=== PATIENT | male | born 2000 | race Caucasian/White ===

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

== ENCOUNTER 2019-03-06 13:53 | Emergency (ER) | payer OTHER ==
[~2019-03-06] VITALS: Ht 182.9 cm; Wt 136.1 kg
== END 2019-03-06 14:27 | disposition home or self-care (01) ==
LOC: ER 13:53
DX: F25.9 Schizoaffective disorder, unspecified (principal); F84.0 Autistic disorder; F90.9 Attention-deficit hyperactivity disorder, unspecified type; I10 Essential (primary) hypertension; Z91.14 Patient's other noncompliance with medication regimen; Z79.899 Other long term (current) drug therapy
CPT/HCPCS: 99284

== ENCOUNTER → 2019-03-08 | Outpatient (CLI) | payer OTHER ==
[2019-03-08 14:12] LABS: U Amphetamine Screen Not Detected; U Barbituate Screen Not Detected; U Benzodiazapine Screen Not Detected; U Buprenorphine Screen Not Detected; U Cannabinoids Screen DETECTED; U Cocaine Screen Not Detected; U Methadone Screen Not Detected; U Methamphetamine Screen Not Detected; U Opiates Screen Not Detected; U Oxycodone Screen Not Detected; U Phencyclidine Screen Not Detected; U Propoxyphene Screen Not Detected
== END ==
LOC: LAB 11:30 → LAB SHORT 11:30
PROVIDERS: Registered Nurse
DX: Z51.81 Encounter for therapeutic drug level monitoring (principal); Z79.899 Other long term (current) drug therapy

== ENCOUNTER 2019-09-23 16:59 | Observation (INO) | payer OTHER ==
[~2019-09-23] VITALS: Ht 182.9 cm; Wt 145.2 kg
[2019-09-23 20:07] LABS: Source, Urine Voided
[2019-09-23 20:14] LABS: BASOPHILS ABSOLUTE AUTO 0.08 K/mm3 (0.00-0.23); BASOPHILS PERCENT AUTO 1 % (0-2); EOSINOPHILS PERCENT AUTO 1 % (0-6); Hematocrit 43.3 % (37.0-53.0); Hemoglobin 14.3 g/dL (13.5-17.5); IMMATURE GRAN ABSOLUTE AUTO 0.06 K/mm3 (0.00-0.10); IMMATURE GRAN PERCENT AUTO 0 % (0-1); LYMPHOCYTES ABSOLUTE AUTO 1.74 K/mm3 (0.84-5.20); LYMPHOCYTES PERCENT AUTO 11 % (21-46); MONOCYTES ABSOLUTE AUTO 0.87 K/mm3 (0.16-1.47); MONOCYTES PERCENT AUTO 6 % (4-13); Mean Corpuscular HGB 28.5 pg (26.0-34.0); Mean Corpuscular Volume 86 fL (80-100); Mean Platelet Volume 9.1 fL (9.1-12.4); NEUTROPHILS ABSOLUTE AUTO 12.75 K/mm3 (1.96-9.15); NEUTROPHILS PERCENT AUTO 82 % (41-73); Platelet Count 366 K/mm3 (150-400); RDW Coefficient Variation 12.5 % (11.7-14.2); RDW Standard Deviation 39.8 fL (35.1-46.3); Red Blood Cell Count 5.01 M/mm3 (4.30-5.90)
[2019-09-23 20:14] LABS: Bilirubin, Urine Neg (Neg); Blood, Urine Neg (Neg); Glucose Qualitative, Urine Neg (Neg); Ketones, Urine Neg (Neg); Leukocyte Esterase, Urine Neg (Neg); Nitrite, Urine Neg (Neg); Protein, Urine 2+ (Neg); Urobilinogen, Urine NORM (Normal)
[2019-09-23 20:20] LABS: Appearance, Urine Clear (Clear); Color, Urine Yellow (P-Yellow)
[2019-09-23 20:21] LABS: Bacteria Mod /hpf; Mucus Light (0-Heavy); Red Blood Cells, Urine 0-2 /hpf (0-2); Squamous Epithelial Cells Not Seen /hpf (Few); White Blood Cells, Urine 0-2 /hpf (0-5)
[2019-09-23 20:33] LABS: Salicylate <1.7 mg/dL (2.8-20.0)
[2019-09-23 20:34] LABS: Alanine Aminotransfer (ALT/SGP 23 U/L (12-78); Albumin, Blood 3.8 g/dL (3.4-5.0); Alk Phos 93 U/L (50-136); Anion Gap 5 mmol/L (6-16); Aspartate Aminotrans (AST/SGOT 20 U/L (12-37); Bilirubin, Total 0.3 mg/dL (0.1-1.0); Blood Urea Nitrogen 20 mg/dL (8-24); Bun/Creatinine Ratio 22.6 (12.0-20.0); CO2, Blood 29 mmol/L (21-32); Chloride, Blood 106 mmol/L (98-108); Creatinine, Blood 0.88 mg/dL (0.60-1.20); Ethanol (Alcohol), Blood, Med <3 mg/dL; Globulin, Blood 3.7 g/dL (2.2-4.0); Glomerular Filtration Rate >60 (60-); Glucose, Blood 111 mg/dL (70-99); Potassium, Blood 4.3 mmol/L (3.5-5.5); Sodium, Blood 140 mmol/L (136-145); Total Protein, Blood 7.5 g/dL (6.4-8.2)
[2019-09-23 20:35] LABS: Acetaminophen, Random <2.0 ug/mL (10.0-30.0)
[2019-09-23 20:40] LABS: U Amphetamine Screen Not Detected; U Barbituate Screen Not Detected; U Benzodiazapine Screen Not Detected; U Buprenorphine Screen Not Detected; U Cannabinoids Screen DETECTED; U Cocaine Screen Not Detected; U Methadone Screen Not Detected; U Methamphetamine Screen Not Detected; U Opiates Screen Not Detected; U Oxycodone Screen Not Detected; U Phencyclidine Screen Not Detected; U Propoxyphene Screen Not Detected
== END 2019-09-26 11:24 | disposition home or self-care (01) ==
LOC: ER 16:59 → EOR 17:00
PROVIDERS: ADMIT Emergency Medicine
DX: F20.0 Paranoid schizophrenia (principal); F90.9 Attention-deficit hyperactivity disorder, unspecified type; F84.0 Autistic disorder; I10 Essential (primary) hypertension; E66.9 Obesity, unspecified; Z91.14 Patient's other noncompliance with medication regimen; Z88.0 Allergy status to penicillin
CPT/HCPCS: 80053; 81001; 85025; 87086; 96372; 99285-25; G0378; G0480; J1200; J1630; J2060; Q3014

== ENCOUNTER 2019-10-14 17:20 | Emergency (ER) | payer OTHER | END 2019-10-14 17:40 | disposition left against medical advice (07) | LOC: ER 17:20 | DX: Z53.21 Procedure and treatment not carried out due to patient leaving prior to being seen by health care provider (principal) ==

== ENCOUNTER 2019-11-15 10:55 | Emergency (ER) | payer OTHER ==
[~2019-11-15] VITALS: Ht 180.3 cm; Wt 147.4 kg
[2019-12-24] MEDS ORDERED: PALI3TAB (09:00)
== END 2019-11-15 13:14 | disposition home or self-care (01) ==
LOC: ER 10:55
DX: F22 Delusional disorders (principal); F91.9 Conduct disorder, unspecified; Z88.0 Allergy status to penicillin
CPT/HCPCS: 99283

== ENCOUNTER 2019-11-20 00:10 | Emergency (ER) | payer OTHER ==
[~2019-11-20] VITALS: Ht 182.9 cm; Wt 113.4 kg
[2019-11-20] MEDS ORDERED: ARIP10 PO (00:34)
[2019-12-24] MEDS ORDERED: PALI3TAB (09:00)
== END 2019-11-20 04:03 | disposition home or self-care (01) ==
LOC: ER 00:10
DX: Z00.8 Encounter for other general examination (principal); Z88.0 Allergy status to penicillin; Z79.899 Other long term (current) drug therapy; I10 Essential (primary) hypertension; F90.9 Attention-deficit hyperactivity disorder, unspecified type; F03.90 Unspecified dementia, unspecified severity, without behavioral disturbance, psychotic disturbance, mood disturbance, and anxiety
CPT/HCPCS: 99285

== ENCOUNTER 2019-12-26 05:40 | Observation (INO) | payer OTHER ==
[~2019-12-26] VITALS: Ht 182.9 cm; Wt 113.4 kg
[~2019-12-26 05:40] MED LIST changes: +ARIP10 PO
[2019-12-26] MEDS ORDERED: Ativan1 MG PO (06:01)
[2019-12-26] MEDS ORDERED: INVEGA SUS39 MG/0.21 (06:02)
[2019-12-26] MEDS ORDERED: PALIPERIDONE ER9 MG PO (06:02)
[2019-12-26 06:39] LABS: Source, Urine Clean Catch
[2019-12-26 06:46] LABS: Appearance, Urine Hazy (Clear); Bilirubin, Urine Neg (Neg); Blood, Urine Neg (Neg); Color, Urine Yellow (P-Yellow); Glucose Qualitative, Urine Neg (Neg); Ketones, Urine 3+ (Neg); Leukocyte Esterase, Urine 1+ (Neg); Nitrite, Urine Neg (Neg); Protein, Urine 1+ (Neg); Specific Gravity, Urine 1.015 (1.003-1.022); Urobilinogen, Urine 1+ (Normal)
[2019-12-26 06:49] LABS: BASOPHILS ABSOLUTE AUTO 0.05 K/mm3 (0.00-0.23); BASOPHILS PERCENT AUTO 0 % (0-2); EOSINOPHILS PERCENT AUTO 1 % (0-6); Hematocrit 45.6 % (37.0-53.0); Hemoglobin 15.3 g/dL (13.5-17.5); IMMATURE GRAN ABSOLUTE AUTO 0.07 K/mm3 (0.00-0.10); IMMATURE GRAN PERCENT AUTO 1 % (0-1); LYMPHOCYTES ABSOLUTE AUTO 2.05 K/mm3 (0.84-5.20); LYMPHOCYTES PERCENT AUTO 14 % (21-46); MONOCYTES ABSOLUTE AUTO 1.07 K/mm3 (0.16-1.47); MONOCYTES PERCENT AUTO 7 % (4-13); Mean Corpuscular HGB 29.4 pg (26.0-34.0); Mean Corpuscular HGB Conc 33.6 g/dL (31.5-36.5); Mean Corpuscular Volume 88 fL (80-100); Mean Platelet Volume 9.3 fL (9.1-12.4); NEUTROPHILS ABSOLUTE AUTO 11.32 K/mm3 (1.96-9.15); NEUTROPHILS PERCENT AUTO 77 % (41-73); Platelet Count 449 K/mm3 (150-400); RDW Coefficient Variation 13.2 % (11.7-14.2); RDW Standard Deviation 42.2 fL (35.1-46.3); Red Blood Cell Count 5.21 M/mm3 (4.30-5.90); White Blood Cell Count 14.66 K/mm3 (4.00-11.30)
[2019-12-26 07:00] LABS: Amorphous Heavy (0-Heavy); Bacteria Few /hpf; Red Blood Cells, Urine 0-2 /hpf (0-2); Squamous Epithelial Cells Few /hpf (Few)
[2019-12-26 07:03] LABS: U Amphetamine Screen Not Detected; U Barbituate Screen Not Detected; U Benzodiazapine Screen Not Detected; U Buprenorphine Screen Not Detected; U Cannabinoids Screen DETECTED; U Cocaine Screen Not Detected; U Methadone Screen Not Detected; U Methamphetamine Screen Not Detected; U Opiates Screen Not Detected; U Oxycodone Screen Not Detected; U Phencyclidine Screen Not Detected; U Propoxyphene Screen Not Detected
[2019-12-26 07:04] LABS: Alanine Aminotransfer (ALT/SGP 24 U/L (12-78); Alk Phos 85 U/L (50-136); Anion Gap 7 mmol/L (6-16); Aspartate Aminotrans (AST/SGOT 24 U/L (12-37); Bilirubin, Total 0.4 mg/dL (0.1-1.0); Blood Urea Nitrogen 5 mg/dL (8-24); Bun/Creatinine Ratio 5.6 (12.0-20.0); CO2, Blood 23 mmol/L (21-32); Calcium, Blood 9.5 mg/dL (8.5-10.1); Chloride, Blood 108 mmol/L (98-108); Creatinine, Blood 0.89 mg/dL (0.60-1.20); Ethanol (Alcohol), Blood, Med <3 mg/dL; Globulin, Blood 4.1 g/dL (2.2-4.0); Glomerular Filtration Rate >60 (60-); Glucose, Blood 106 mg/dL (70-99); Salicylate <1.7 mg/dL (2.8-20.0); Sodium, Blood 138 mmol/L (136-145); Total Protein, Blood 8.1 g/dL (6.4-8.2)
[2019-12-26 07:07] LABS: Acetaminophen, Random <2.0 ug/mL (10.0-30.0)
== END 2019-12-27 10:01 | disposition home or self-care (01) ==
LOC: ER 05:40 → EOR 05:41
PROVIDERS: ADMIT Emergency Medicine
DX: F29 Unspecified psychosis not due to a substance or known physiological condition (principal); I10 Essential (primary) hypertension; Z88.0 Allergy status to penicillin; Z79.899 Other long term (current) drug therapy
CPT/HCPCS: 36415; 80053; 81001; 85025; 87086; 96372; 99285-25; G0378; G0480; J1630; J2060

== ENCOUNTER 2020-02-24 11:01 | Emergency (ER) | payer OTHER ==
[~2020-02-24] VITALS: Ht 180.3 cm; Wt 122.5 kg
[~2020-02-24 11:01] MED LIST changes: +Ativan1 MG PO; +INVEGA SUS39 MG/0.21; +PALIPERIDONE ER9 MG PO
[2020-02-24 11:37] LABS: Source, Urine Clean Catch
[2020-02-24 11:39] LABS: Appearance, Urine Clear (Clear); Bilirubin, Urine Neg (Neg); Blood, Urine Neg (Neg); Color, Urine Yellow (P-Yellow); Glucose Qualitative, Urine Neg (Neg); Ketones, Urine Neg (Neg); Leukocyte Esterase, Urine Neg (Neg); Nitrite, Urine Neg (Neg); Protein, Urine Neg (Neg); Specific Gravity, Urine 1.015 (1.003-1.022); Urobilinogen, Urine NORM (Normal); pH, Urine 6.5 (5.0-8.0)
== END 2020-02-24 12:23 | disposition home or self-care (01) ==
LOC: ER 11:01
PROVIDERS: Emergency Medicine
DX: R82.998 Other abnormal findings in urine (principal); I10 Essential (primary) hypertension; F20.81 Schizophreniform disorder; Z79.899 Other long term (current) drug therapy
CPT/HCPCS: 81003; 99284

== ENCOUNTER 2020-03-19 15:59 | Emergency (ER) | payer OTHER ==
[~2020-03-19] VITALS: Ht 177.8 cm; Wt 122.5 kg
[2020-03-19 16:51] LABS: BASOPHILS ABSOLUTE AUTO 0.06 K/mm3 (0.00-0.23); BASOPHILS PERCENT AUTO 0 % (0-2); EOSINOPHILS ABSOLUTE AUTO 0.01 K/mm3 (0.00-0.68); EOSINOPHILS PERCENT AUTO 0 % (0-6); Hematocrit 48.3 % (37.0-53.0); Hemoglobin 15.5 g/dL (13.5-17.5); IMMATURE GRAN ABSOLUTE AUTO 0.08 K/mm3 (0.00-0.10); IMMATURE GRAN PERCENT AUTO 0 % (0-1); LYMPHOCYTES ABSOLUTE AUTO 1.22 K/mm3 (0.84-5.20); LYMPHOCYTES PERCENT AUTO 6 % (21-46); MONOCYTES PERCENT AUTO 5 % (4-13); Mean Corpuscular HGB 28.8 pg (26.0-34.0); Mean Corpuscular HGB Conc 32.1 g/dL (31.5-36.5); Mean Corpuscular Volume 90 fL (80-100); Mean Platelet Volume 8.7 fL (9.1-12.4); NEUTROPHILS ABSOLUTE AUTO 18.79 K/mm3 (1.96-9.15); NEUTROPHILS PERCENT AUTO 88 % (41-73); Platelet Count 445 K/mm3 (150-400); RDW Coefficient Variation 13.3 % (11.7-14.2); RDW Standard Deviation 44.3 fL (35.1-46.3); Red Blood Cell Count 5.38 M/mm3 (4.30-5.90); White Blood Cell Count 21.26 K/mm3 (4.00-11.30)
[2020-03-19 17:20] LABS: Salicylate 1.9 mg/dL (2.8-20.0)
[2020-03-19 17:22] LABS: Alanine Aminotransfer (ALT/SGP 22 U/L (12-78); Albumin, Blood 4.4 g/dL (3.4-5.0); Albumin/Globulin Ratio 1.1 (0.8-1.8); Alk Phos 93 U/L (50-136); Anion Gap 9 mmol/L (6-16); Aspartate Aminotrans (AST/SGOT 17 U/L (12-37); Blood Urea Nitrogen 13 mg/dL (8-24); Bun/Creatinine Ratio 13.7 (12.0-20.0); CO2, Blood 17 mmol/L (21-32); Calcium, Blood 8.8 mg/dL (8.5-10.1); Chloride, Blood 114 mmol/L (98-108); Creatinine, Blood 0.95 mg/dL (0.60-1.20); Glomerular Filtration Rate >60 (60-); Glucose, Blood 79 mg/dL (70-99); Potassium, Blood 4.3 mmol/L (3.5-5.5); Sodium, Blood 140 mmol/L (136-145); Total Protein, Blood 8.4 g/dL (6.4-8.2)
[2020-03-19 17:23] LABS: Acetaminophen, Random <2.0 ug/mL (10.0-30.0)
== END 2020-03-19 20:13 | disposition home or self-care (01) ==
LOC: ER 15:59
PROVIDERS: Physician Assistant
DX: T48.3X2A Poisoning by antitussives, intentional self-harm, initial encounter (principal); R53.83 Other fatigue; I10 Essential (primary) hypertension; F90.9 Attention-deficit hyperactivity disorder, unspecified type; F20.81 Schizophreniform disorder; Z88.0 Allergy status to penicillin; Z79.899 Other long term (current) drug therapy
CPT/HCPCS: 36415; 71045; 80053; 83605; 85025; 93005; 93010; 96360; 99284-25; G0480; J7030

== ENCOUNTER 2020-03-20 01:00 | Emergency (ER) | payer OTHER ==
[~2020-03-20] VITALS: Ht 177.8 cm; Wt 90.7 kg
== END 2020-03-20 02:42 | disposition home or self-care (01) ==
LOC: ER 01:00
DX: M79.672 Pain in left foot (principal); R20.0 Anesthesia of skin; F90.9 Attention-deficit hyperactivity disorder, unspecified type; F84.0 Autistic disorder; F20.81 Schizophreniform disorder; Z88.0 Allergy status to penicillin; Z79.899 Other long term (current) drug therapy; Z87.442 Personal history of urinary calculi
CPT/HCPCS: 73630; 99283-25; A9270

== ENCOUNTER 2020-04-13 07:03 | Observation (INO) | payer OTHER ==
[~2020-04-13] VITALS: Ht 177.8 cm; Wt 104.3 kg
[2020-04-13 07:56] LABS: BASOPHILS ABSOLUTE AUTO 0.05 K/mm3 (0.00-0.23); BASOPHILS PERCENT AUTO 0 % (0-2); EOSINOPHILS ABSOLUTE AUTO 0.02 K/mm3 (0.00-0.68); EOSINOPHILS PERCENT AUTO 0 % (0-6); Hematocrit 46.2 % (37.0-53.0); Hemoglobin 15.4 g/dL (13.5-17.5); IMMATURE GRAN ABSOLUTE AUTO 0.03 K/mm3 (0.00-0.10); IMMATURE GRAN PERCENT AUTO 0 % (0-1); LYMPHOCYTES ABSOLUTE AUTO 1.73 K/mm3 (0.84-5.20); LYMPHOCYTES PERCENT AUTO 14 % (21-46); MONOCYTES PERCENT AUTO 7 % (4-13); Mean Corpuscular HGB 29.2 pg (26.0-34.0); Mean Corpuscular HGB Conc 33.3 g/dL (31.5-36.5); Mean Corpuscular Volume 88 fL (80-100); NEUTROPHILS ABSOLUTE AUTO 9.46 K/mm3 (1.96-9.15); NEUTROPHILS PERCENT AUTO 78 % (41-73); Platelet Count 440 K/mm3 (150-400); RDW Coefficient Variation 13.2 % (11.7-14.2); RDW Standard Deviation 42.3 fL (35.1-46.3); Red Blood Cell Count 5.27 M/mm3 (4.30-5.90); White Blood Cell Count 12.09 K/mm3 (4.00-11.30)
[2020-04-13 08:10] LABS: Alanine Aminotransfer (ALT/SGP 24 U/L (12-78); Albumin, Blood 4.5 g/dL (3.4-5.0); Albumin/Globulin Ratio 1.1 (0.8-1.8); Alk Phos 92 U/L (50-136); Anion Gap 6 mmol/L (6-16); Aspartate Aminotrans (AST/SGOT 15 U/L (12-37); Bilirubin, Total 0.9 mg/dL (0.1-1.0); Blood Urea Nitrogen 18 mg/dL (8-24); Bun/Creatinine Ratio 21.6 (12.0-20.0); CO2, Blood 24 mmol/L (21-32); Calcium, Blood 9.6 mg/dL (8.5-10.1); Chloride, Blood 108 mmol/L (98-108); Creatinine, Blood 0.84 mg/dL (0.60-1.20); Ethanol (Alcohol), Blood, Med <3 mg/dL; Globulin, Blood 4.2 g/dL (2.2-4.0); Glomerular Filtration Rate >60 (60-); Glucose, Blood 98 mg/dL (70-99); Potassium, Blood 4.2 mmol/L (3.5-5.5); Salicylate <1.7 mg/dL (2.8-20.0); Sodium, Blood 138 mmol/L (136-145); Total Protein, Blood 8.7 g/dL (6.4-8.2)
[2020-04-13 08:11] LABS: Acetaminophen, Random <2.0 ug/mL (10.0-30.0)
[2020-04-13 08:30] LABS: Influenza A, PCR Negative (NEGATIVE); Influenza B, PCR Negative (NEGATIVE); Resp Syncytial Virus, PCR Negative (NEGATIVE); SARS-Cov-2 (COVID-19) PCR, MMC Negative (NEGATIVE)
[2020-04-13 08:42] LABS: Source, Urine Voided
[2020-04-13 08:54] LABS: Bilirubin, Urine Neg (Neg); Blood, Urine Neg (Neg); Glucose Qualitative, Urine Neg (Neg); Ketones, Urine 4+ (Neg); Leukocyte Esterase, Urine Neg (Neg); Nitrite, Urine Neg (Neg); Protein, Urine 2+ (Neg); Specific Gravity, Urine 1.025 (1.003-1.022); Urobilinogen, Urine 2+ (Normal)
[2020-04-13 09:00] LABS: Appearance, Urine Clear (Clear); Color, Urine Amber (P-Yellow)
[2020-04-13 09:01] LABS: Red Blood Cells, Urine 0-2 /hpf (0-2); White Blood Cells, Urine 0-2 /hpf (0-5)
[2020-04-13 09:02] LABS: Bacteria Mod /hpf; Mucus Mod (0-Heavy); Squamous Epithelial Cells Rare /hpf (Few)
[2020-04-13 09:07] LABS: U Amphetamine Screen Not Detected; U Barbituate Screen Not Detected; U Benzodiazapine Screen Not Detected; U Buprenorphine Screen Not Detected; U Cannabinoids Screen DETECTED; U Cocaine Screen Not Detected; U Methadone Screen Not Detected; U Methamphetamine Screen Not Detected; U Opiates Screen Not Detected; U Oxycodone Screen Not Detected; U Phencyclidine Screen Not Detected; U Propoxyphene Screen Not Detected
== END 2020-04-16 11:12 | disposition home or self-care (01) ==
LOC: ER 07:03 → EOR 07:04
PROVIDERS: ADMIT Emergency Medicine
DX: F29 Unspecified psychosis not due to a substance or known physiological condition (principal); F90.9 Attention-deficit hyperactivity disorder, unspecified type; F84.0 Autistic disorder; Z88.0 Allergy status to penicillin; I10 Essential (primary) hypertension; Z20.828 Contact with and (suspected) exposure to other viral communicable diseases; Z79.899 Other long term (current) drug therapy
CPT/HCPCS: 0241U; 36415; 80053; 81001; 85025; 87086; 96372; 99285-25; G0378; G0480; Q3014

== ENCOUNTER 2020-05-13 22:40 | Observation (INO) | payer OTHER ==
[~2020-05-13] VITALS: Ht 177.8 cm; Wt 104.3 kg
[2020-05-13 23:22] LABS: BASOPHILS ABSOLUTE AUTO 0.05 K/mm3 (0.00-0.23); BASOPHILS PERCENT AUTO 0 % (0-2); EOSINOPHILS ABSOLUTE AUTO 0.01 K/mm3 (0.00-0.68); EOSINOPHILS PERCENT AUTO 0 % (0-6); Hematocrit 48.1 % (37.0-53.0); Hemoglobin 15.7 g/dL (13.5-17.5); IMMATURE GRAN PERCENT AUTO 0 % (0-1); LYMPHOCYTES PERCENT AUTO 10 % (21-46); MONOCYTES ABSOLUTE AUTO 1.45 K/mm3 (0.16-1.47); MONOCYTES PERCENT AUTO 6 % (4-13); Mean Corpuscular HGB Conc 32.6 g/dL (31.5-36.5); Mean Corpuscular Volume 89 fL (80-100); Mean Platelet Volume 9.5 fL (9.1-12.4); NEUTROPHILS ABSOLUTE AUTO 19.37 K/mm3 (1.96-9.15); NEUTROPHILS PERCENT AUTO 84 % (41-73); Platelet Count 414 K/mm3 (150-400); RDW Coefficient Variation 12.6 % (11.7-14.2); RDW Standard Deviation 41.3 fL (35.1-46.3); Red Blood Cell Count 5.42 M/mm3 (4.30-5.90); White Blood Cell Count 23.18 K/mm3 (4.00-11.30)
[2020-05-13 23:40] LABS: Acetaminophen, Random 9.8 ug/mL (10.0-30.0); Alanine Aminotransfer (ALT/SGP 29 U/L (12-78); Albumin/Globulin Ratio 0.9 (0.8-1.8); Alk Phos 86 U/L (50-136); Anion Gap 13 mmol/L (6-16); Aspartate Aminotrans (AST/SGOT 36 U/L (12-37); Bilirubin, Total 0.5 mg/dL (0.1-1.0); Blood Urea Nitrogen 22 mg/dL (8-24); CO2, Blood 17 mmol/L (21-32); Calcium, Blood 9.1 mg/dL (8.5-10.1); Chloride, Blood 105 mmol/L (98-108); Creatinine, Blood 0.88 mg/dL (0.60-1.20); Ethanol (Alcohol), Blood, Med <3 mg/dL; Globulin, Blood 4.4 g/dL (2.2-4.0); Glomerular Filtration Rate >60 (60-); Glucose, Blood 123 mg/dL (70-99); Potassium, Blood 4.1 mmol/L (3.5-5.5); Sodium, Blood 135 mmol/L (136-145); Total Protein, Blood 8.4 g/dL (6.4-8.2)
[2020-05-14 00:54] LABS: Influenza A, PCR Negative (NEGATIVE); Influenza B, PCR Negative (NEGATIVE); Resp Syncytial Virus, PCR Negative (NEGATIVE); SARS-Cov-2 (COVID-19) PCR, MMC Negative (NEGATIVE)
[2020-05-14 01:08] LABS: U Amphetamine Screen Not Detected; U Barbituate Screen Not Detected; U Benzodiazapine Screen DETECTED; U Buprenorphine Screen Not Detected; U Cannabinoids Screen DETECTED; U Cocaine Screen Not Detected; U Methadone Screen Not Detected; U Methamphetamine Screen Not Detected; U Opiates Screen Not Detected; U Oxycodone Screen Not Detected; U Phencyclidine Screen Not Detected; U Propoxyphene Screen Not Detected
[2020-05-14 05:34] LABS: Source, Urine Clean Catch
[2020-05-14 05:53] LABS: Appearance, Urine Clear (Clear); Bilirubin, Urine Neg (Neg); Blood, Urine Neg (Neg); Color, Urine Yellow (P-Yellow); Glucose Qualitative, Urine Neg (Neg); Ketones, Urine 2+ (Neg); Leukocyte Esterase, Urine Neg (Neg); Nitrite, Urine Neg (Neg); Protein, Urine Neg (Neg); Urobilinogen, Urine NORM (Normal)
== END 2020-05-15 13:57 ==
LOC: ER 22:40 → EOR 22:41
PROVIDERS: Emergency Medicine; ADMIT Student in an Organized Health Care Education/Training Program
DX: F20.9 Schizophrenia, unspecified (principal); R45.851 Suicidal ideations; F84.0 Autistic disorder; F90.1 Attention-deficit hyperactivity disorder, predominantly hyperactive type; E66.9 Obesity, unspecified; I10 Essential (primary) hypertension; F12.10 Cannabis abuse, uncomplicated; F13.10 Sedative, hypnotic or anxiolytic abuse, uncomplicated; G89.29 Other chronic pain; M25.569 Pain in unspecified knee; Z91.14 Patient's other noncompliance with medication regimen; Z20.822 Contact with and (suspected) exposure to COVID-19; Z88.0 Allergy status to penicillin
CPT/HCPCS: 0241U; 36415; 80053; 81003; 85025; 93005; 93010; 96372; 96372-59; 99285-25; A9270; G0378; G0480; J1200; J1630; J2060; J2250; J7030

== ENCOUNTER 2020-07-04 05:46 | Emergency (ER) | payer OTHER ==
[~2020-07-04] VITALS: Ht 188 cm; Wt 124.7 kg
[2020-07-04 07:28] LABS: Source, Urine Clean Catch
[2020-07-04 07:30] LABS: BASOPHILS ABSOLUTE AUTO 0.03 K/mm3 (0.00-0.23); BASOPHILS PERCENT AUTO 0 % (0-2); EOSINOPHILS ABSOLUTE AUTO 0.05 K/mm3 (0.00-0.68); EOSINOPHILS PERCENT AUTO 0 % (0-6); Hematocrit 44.3 % (37.0-53.0); IMMATURE GRAN ABSOLUTE AUTO 0.04 K/mm3 (0.00-0.10); IMMATURE GRAN PERCENT AUTO 0 % (0-1); LYMPHOCYTES ABSOLUTE AUTO 2.32 K/mm3 (0.84-5.20); LYMPHOCYTES PERCENT AUTO 19 % (21-46); MONOCYTES ABSOLUTE AUTO 1.36 K/mm3 (0.16-1.47); MONOCYTES PERCENT AUTO 11 % (4-13); Mean Corpuscular HGB 28.9 pg (26.0-34.0); Mean Corpuscular HGB Conc 33.9 g/dL (31.5-36.5); Mean Corpuscular Volume 85 fL (80-100); Mean Platelet Volume 9.2 fL (9.1-12.4); NEUTROPHILS PERCENT AUTO 69 % (41-73); Platelet Count 337 K/mm3 (150-400); RDW Coefficient Variation 12.7 % (11.7-14.2); RDW Standard Deviation 39.8 fL (35.1-46.3); Red Blood Cell Count 5.19 M/mm3 (4.30-5.90)
[2020-07-04 07:31] LABS: Appearance, Urine Clear (Clear); Bilirubin, Urine Neg (Neg); Blood, Urine Neg (Neg); Color, Urine Yellow (P-Yellow); Glucose Qualitative, Urine Neg (Neg); Ketones, Urine 1+ (Neg); Leukocyte Esterase, Urine Neg (Neg); Nitrite, Urine Neg (Neg); Protein, Urine Neg (Neg); Specific Gravity, Urine 1.015 (1.003-1.022); Urobilinogen, Urine NORM (Normal); pH, Urine 6.5 (5.0-8.0)
[2020-07-04 07:45] LABS: U Amphetamine Screen Not Detected; U Barbituate Screen Not Detected; U Benzodiazapine Screen DETECTED; U Buprenorphine Screen Not Detected; U Cannabinoids Screen DETECTED; U Cocaine Screen Not Detected; U Methadone Screen Not Detected; U Methamphetamine Screen Not Detected; U Opiates Screen Not Detected; U Oxycodone Screen Not Detected; U Phencyclidine Screen Not Detected; U Propoxyphene Screen Not Detected
[2020-07-04 07:48] LABS: Alanine Aminotransfer (ALT/SGP 39 U/L (12-78); Albumin, Blood 4.1 g/dL (3.4-5.0); Albumin/Globulin Ratio 1.1 (0.8-1.8); Alk Phos 85 U/L (50-136); Anion Gap 8 mmol/L (6-16); Aspartate Aminotrans (AST/SGOT 105 U/L (12-37); Bilirubin, Total 0.8 mg/dL (0.1-1.0); Blood Urea Nitrogen 18 mg/dL (8-24); Bun/Creatinine Ratio 18.3 (12.0-20.0); CO2, Blood 22 mmol/L (21-32); Calcium, Blood 9.1 mg/dL (8.5-10.1); Chloride, Blood 107 mmol/L (98-108); Creatinine, Blood 0.99 mg/dL (0.60-1.20); Ethanol (Alcohol), Blood, Med <3 mg/dL; Free Thyroxine 1.35 ng/dL (0.70-1.60); Globulin, Blood 3.9 g/dL (2.2-4.0); Glomerular Filtration Rate >60 (60-); Glucose, Blood 89 mg/dL (70-99); Potassium, Blood 3.8 mmol/L (3.5-5.5); Salicylate 2.2 mg/dL (2.8-20.0); Sodium, Blood 137 mmol/L (136-145)
[2020-07-04 08:03] LABS: Acetaminophen, Random <2.0 ug/mL (10.0-30.0)
== END 2020-07-04 11:08 | disposition home or self-care (01) ==
LOC: ER 05:46
PROVIDERS: Emergency Medicine
DX: F20.9 Schizophrenia, unspecified (principal); F84.0 Autistic disorder; Z91.19 Patient's noncompliance with other medical treatment and regimen; Z79.899 Other long term (current) drug therapy; Z88.0 Allergy status to penicillin; Z87.442 Personal history of urinary calculi
CPT/HCPCS: 36415; 71045; 80053; 81003; 84439; 84443; 85025; 93005; 93010; 99285-25; A9270; G0480

== ENCOUNTER 2020-07-06 10:17 | Inpatient (IN) | payer OTHER ==
[~2020-07-06] VITALS: Ht 190.5 cm; Wt 131.5 kg
[2020-07-06] MEDS ORDERED: OLAN10 (10:36)
[2020-07-06 10:38] LABS: BASOPHILS ABSOLUTE AUTO 0.04 K/mm3 (0.00-0.23); BASOPHILS PERCENT AUTO 0 % (0-2); EOSINOPHILS PERCENT AUTO 1 % (0-6); Hematocrit 42.1 % (37.0-53.0); Hemoglobin 14.3 g/dL (13.5-17.5); IMMATURE GRAN ABSOLUTE AUTO 0.03 K/mm3 (0.00-0.10); IMMATURE GRAN PERCENT AUTO 0 % (0-1); LYMPHOCYTES ABSOLUTE AUTO 1.91 K/mm3 (0.84-5.20); LYMPHOCYTES PERCENT AUTO 21 % (21-46); MONOCYTES ABSOLUTE AUTO 0.66 K/mm3 (0.16-1.47); MONOCYTES PERCENT AUTO 7 % (4-13); Mean Corpuscular HGB 29.1 pg (26.0-34.0); Mean Corpuscular Volume 86 fL (80-100); NEUTROPHILS ABSOLUTE AUTO 6.41 K/mm3 (1.96-9.15); NEUTROPHILS PERCENT AUTO 70 % (41-73); Platelet Count 295 K/mm3 (150-400); RDW Coefficient Variation 12.8 % (11.7-14.2); RDW Standard Deviation 40.5 fL (35.1-46.3); Red Blood Cell Count 4.91 M/mm3 (4.30-5.90); White Blood Cell Count 9.15 K/mm3 (4.00-11.30)
[2020-07-06 10:58] LABS: Alanine Aminotransfer (ALT/SGP 45 U/L (12-78); Albumin, Blood 3.8 g/dL (3.4-5.0); Alk Phos 77 U/L (50-136); Anion Gap 8 mmol/L (6-16); Aspartate Aminotrans (AST/SGOT 59 U/L (12-37); Bilirubin, Total 0.7 mg/dL (0.1-1.0); Blood Urea Nitrogen 17 mg/dL (8-24); Bun/Creatinine Ratio 19.5 (12.0-20.0); CO2, Blood 23 mmol/L (21-32); Calcium, Blood 8.9 mg/dL (8.5-10.1); Chloride, Blood 109 mmol/L (98-108); Creatinine, Blood 0.87 mg/dL (0.60-1.20); Ethanol (Alcohol), Blood, Med <3 mg/dL; Globulin, Blood 3.7 g/dL (2.2-4.0); Glomerular Filtration Rate >60 (60-); Glucose, Blood 88 mg/dL (70-99); Potassium, Blood 3.9 mmol/L (3.5-5.5); Salicylate 1.9 mg/dL (2.8-20.0); Sodium, Blood 140 mmol/L (136-145); Thyroxine (T4) 11.2 ug/dL (4.5-12.1); Total Protein, Blood 7.5 g/dL (6.4-8.2)
[2020-07-06 10:59] LABS: Acetaminophen, Random <2.0 ug/mL (10.0-30.0)
[2020-07-06 11:36] LABS: Creatine Kinase MB 5.3 ng/mL (0.0-3.6); Creatine Kinase MB Index 0.4 (0.0-4.0)
[2020-07-06 12:53] LABS: Source, Urine Catheter
[2020-07-06 12:57] LABS: Bilirubin, Urine Neg (Neg); Blood, Urine Neg (Neg); Glucose Qualitative, Urine Neg (Neg); Ketones, Urine Neg (Neg); Leukocyte Esterase, Urine Neg (Neg); Nitrite, Urine Neg (Neg); Protein, Urine Neg (Neg); Specific Gravity, Urine 1.005 (1.003-1.022); Urobilinogen, Urine NORM (Normal)
[2020-07-06 12:58] LABS: Appearance, Urine Clear (Clear); Color, Urine Pale Yellow (P-Yellow)
[2020-07-06 13:09] LABS: U Amphetamine Screen Not Detected; U Barbituate Screen Not Detected; U Benzodiazapine Screen DETECTED; U Buprenorphine Screen Not Detected; U Cannabinoids Screen DETECTED; U Cocaine Screen Not Detected; U Methadone Screen Not Detected; U Methamphetamine Screen Not Detected; U Opiates Screen Not Detected; U Oxycodone Screen Not Detected; U Phencyclidine Screen Not Detected; U Propoxyphene Screen Not Detected
--- NOTE | 2020-07-06 16:44 | NUR ---
1420 PT WAS BROUGHT TO ICU-11 VIA STRETCHER AND IN 4 POINT RESTRAINTS. PT CALM AT THIS TIME AND MUMBLING. SHORTLY AFTER MOVING OVER T0 BED AND ADMIT CARE BEGUN, PT HAD A SHORT 1-2 MIN EPISODE OF VERBAL AND SIDE TO SIDE THRASHING BEHAVIOR BUT THEN CALMED AND WAS ABLE TO RESPOND TO QUESTIONS WITH EPISODES OF MUMBLING CONTINUING. PT MOTHER REBEKAH WAS CALLED AND MADE AWARE OF PT STATUS AT THIS TIME AND THAT HE IS ON A 2 MD HOLD. AT THIS TIME PT REMAINS IN 4 POINT RESTRAINTS BUT IS GENERALLY CALM AND RESTING WITH SOME SHORT EPISODES OF PULLING AT RESTRAINTS BUT NOT AGRESSIVE. PT IS SR TO OCC ST 80-105 RANGE.
--- NOTE | 2020-07-06 17:53 | NUR ---
PT IS RESTING AND RESTRAINED WITH EPISODE OR SHORT BURSTS OF AGITATION/ANXIETY AND THE CALMS DOWN. VS NOTED. IV NS AT 150ML. PT HAS VOIDED TIMES 2 AND HAS ATTENDS.
--- NOTE | 2020-07-06 18:17 | NUR ---
PT REMAINS UP IN CHAIR. U.O. DOWN NOTED BUT PO INTAKE HAS BEEN UP SOMEWHAT AND PT COACHED TO SLOW PO TO AVOID RESP. ISSUES. PT BROTHER HAS BEEN IN ROOM VISITING. PT TOLERATING O2 PER MOUTH AT 9L AND STATS 94-96 RANGE. PT DENIES DISTRESS AT THIS TIME.
--- NOTE | 2020-07-06 19:15 | NUR ---
PATIENT RESTLESS AND YELLING OUT. CONVERSATION HARD TO FOLLOW, PATIENT HAVING FLIGHT OF IDEAS. INCONT OF URINE. PATIENT PULLING AT HEART MONITOR AND IV'S AND NOT COOPERATIVE WITH CARE. 3 NURSES AND KEEPING PARTIALLY RESTRAINED DURING BED CHANGE AND CLEAN UP OF URINE. CONDOM CATH PLACED, WHILE PLACING CONDOM CATH PATIENT YELLING OUT RAPE AND CONSTANTLY MOVING DESPITE REPEATED EXPLANATION OF WHAT NURSING STAFF WAS ATTEMPTING. ATIVAN IV GIVEN WITH LITTLE EFFECT. AGAIN EXPLAINED TO PATIENT THAT HE IS IN THE HOSPITAL BECAUSE HE TOOK TO MANY OF HIS MEDICATIONS. PATIENT VERBALIZED "I KNOW" BUT UNABLE TO VERBALIZE BACK WHERE HE IS AND WHY. [address]UFF CUFFS IN PLACE TO PROTECT LINES AND CORDS AND TO KEEP PATIENT IN BED. PATIENT VERY UNPREDICTABLE BEHAVIOR.
--- NOTE | 2020-07-07 02:35 | NUR ---
PATIENT PULLING OFF GOWN, HEART MONITOR AND BITING AT IV TUBING. VERBALIZING THAT HE NEEDS TO GO AND JOIN THE FIGHT WITH THE ALIENS. PATIENT BECOMING AGITATED WHEN ATTEMPTING TO REORIENT
[2020-07-07 03:50] LABS: Anion Gap 6 mmol/L (6-16); Blood Urea Nitrogen 8 mg/dL (8-24); Bun/Creatinine Ratio 11.1 (12.0-20.0); CO2, Blood 23 mmol/L (21-32); CPK Creatine Kinase 602 U/L (39-308); Calcium, Blood 8.2 mg/dL (8.5-10.1); Chloride, Blood 113 mmol/L (98-108); Creatinine, Blood 0.72 mg/dL (0.60-1.20); Glomerular Filtration Rate >60 (60-); Glucose, Blood 88 mg/dL (70-99); Potassium, Blood 3.7 mmol/L (3.5-5.5); Sodium, Blood 142 mmol/L (136-145)
--- NOTE | 2020-07-07 06:22 | NUR ---
PATIENT RESTLESS AND YELLING OUT MOST OF THE NIGHT. MEDICATED WITH ATIVAN PRN WITH LITTLE RESULTS. 4 POINT LOCKED CUFF RESTRAINTS CONTINUE DUE TO UNPREDICTABLE BEHAVIOR AND PATIENT CONTINUING TO PULL ON LINES AND CORDS DESPITE FREQUENT REMINDERS TO NOT PULL AT LINES. PATIENT ABLE TO REMOVE SOFT RESTRAINTS. PATIENT BITING CORDS AND RESTRAINTS IF THEY GET CLOSE ENOUGH TO HIM. PATIENT GIVING VERBAL THREATS REGARDING HURTING OTHERS. 2-3 STAFF MEMBERS AT BEDSIDE WHEN ADJUSTING RESTRAINTS DUE TO PATIENTS UNPREDICTABLE BEHAVIOR. PATIENT HAVING FLIGHT OF IDEAS WHEN ATTEMPTING TO HAVE CONVERSATION. PATIENT VERBALIZED THAT HE TOOK HIS PILLS TO GET HIGH.
--- NOTE | 2020-07-07 07:32 | NUR ---
ASSUMED CARE: PT RESTING IN BED IN 4 POINT RESTRAINTS. THRASHING IN BED, PULLING AT RESTRAINTS. WILL HAVE MOMENTS OF CALM WHEN STAFF IS AT BEDSIDE AND THEN WHEN STAFF LEAVES HE STARTS YELLING AND SCREAMING FOR ASSISTANCE OR GARBLED SENTENCES THAT DO NOT MAKE SENSE. SPEECH IS FAST AND HARD TO UNDERSTAND AT TIMES. SOME OF HIS SPEECH SEEMS LUCID, OTHERS CONFUSED WITH FLIGHT OF IDEAS AND DELUSIONS OF GRANDEUR PER UTILITY AIRCREWMAN REPORT. REQUIRES FREQUENT REORIENTATION AND REMINDING TO STOP YELLING. AWAITING DR PERRY EVALUATION FOR FURTHER ORDERS AND INSTRUCTIONS.
--- NOTE | 2020-07-07 09:12 | NUR ---
PT CALM AT TIMES BUT THEN BEGINS THRASHING IN BED, PULLING AT RESTRAINTS, YELLING AND CALLING OUT. CALL TO DR PAUL FOR PRECEDEX. DR SUGGESTED LIBRIUM AND IF THAT DOESN'T WORK, THEN USE PRECEDEX. WENT TO BEDSIDE OFFERING LIBRIUM AND PT REFUSED TO TAKE IT. WILL ATTEMPT PRECEDEX WHEN IT BECOMES AVAILABLE FROM PHARMACY.
--- NOTE | 2020-07-07 09:51 | NUR ---
PT'S MEDICATIONS: PHARMACIST STATED THAT PT'S INVEGA WAS IN PHARMACY. CALL TO MOTHER FOR DETAILS. PT'S MOTHER REBEKAH STATES SHE BROUGHT MEDICATION IN AND THAT PT'S LAST DOSE WAS MAY AND DUE IN JUNE BUT PT REFUSED TO TAKE IT. SHE SAID THE ONLY THING HE WOULD TAKE WAS THE OLANZIPINE AND HE REFUSED TO GO TO HIS ACT APPOINTMENTS WEHRE SOMEONE ELSE WAS SUPPOSED TO ADMINISTER MEDS. REBEKAH STATES THAT SHE AND HER HAVE BEEN ATTEMPTING TO GET GUARDIANSHIP BUT WERE TOLD THAT MEDICATIONS CANNOT BE FORCED EVEN WITH GUARDIANSHIP. PT'S MOTHER STATES THAT NOW THAT PT IS IN HOSPITAL, SHE AND HER CLEANED OUT PT'S ROOM AND FOUND THAT HE HAS BEEN HOARDING HIS MEDICATIONS AND THEY REMOVED ALL OF THOSE MEDS FROM HIS ROOM SO THAT HE CANNOT OVERDOSE AGAIN. SHE SAYS SHE HAS BEEN WORKING WITH STAFF FROM [facility] AND [facility] AND FEELS THAT THEY HAVE NOT BEEN MUCH HELP BECAUSE MULTIPLE PEOPLE HAVE TOLD THEM THAT "THEY WOULD BE LAUGHED OUT OF COURT" IF CERTAIN REQUESTS WERE MADE. DISCUSSED THIS WITH GREGORIO STARK, WHO IS PLANNING ON EXPLORING PT'S OPTIONS AND RESOURCES WITH [facility] AND DR PERRY.
--- NOTE | 2020-07-07 11:00 | NUR ---
PT'S INVEGA ORDERED BY . ATTEMPTED TO GET PT TO AGREE TO MED BY TELLING HIM THAT THIS MAY HELP DR PERRY'S DECISION TO LET HIM GO HOME IF HE WILLINGLY TAKES IT BUT HE REFUSED. ASKED PT IF WE COULD REPOSITION HIS RESTRAINED ARMS BUT PT STATED THAT IF WE UNRESTRAINED HIM HE WOULD HURT SOMEONE OR EVERYONE WHO WAS IN HIS ROOM. CALL FOR SECURITY. SECURITY CAME AND SPOKE WITH PT AND HELPED HOLD LIMBS WHILE INVEGA WAS GIVEN. PRECEDEX RUNNING AND INCREASED TO MAX DOSE FOR INJECTION. PT CALM AT THIS TIME WITH [address]
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
--- NOTE | 2020-07-07 12:32 | NUR ---
Meeting with [facility] PreCommittment Mutual Fund Sales Agent, Delmy, and Mary PARADA in ICU at [address] Brown was consulted by this keno writer / runner this a.m., as is very knowledgeable of this patient's psychiatric history, and discussed possibility of court commitment to try and interupt this patient's psychiatric deterioration, now resulting in ICU admission for Overdose. Delmy informed that patient did not have his Invega injection in June, due to his refusal. Pt is not in Assertive Community Treatment at this time with [facility]. Discussed with Delmy the report from pt mother that they discovered hoarding of medications in patient's room, and concern with a discharge to home due to recent OD, and recommended seeking court commitment and placement in a residential treatment facility for intensive treatment. Also recommend to Delmy that patient parents receive support to seek guardianship, as patient record indicates he is delusional, minimizes his negative behaviors of overdose, aggression towards his psychiatrist during May ED involuntary hold, aggression towards parents, and also denies his need for treatment. Tangela Rock M.Ed., [facility], Behavior health Director
--- NOTE | 2020-07-07 15:12 | NUR ---
SECURITY CALLED TO ASSIST WITH PT REPOSITIONING. LEFT ARM BROUGHT DOWN AND RIGHT ARM RAISED AND RELOCKED. PT REMAINS ON 0.3MCG/KG OF PRECEDEX. DROWSY, AWOKE ENOUGH TO ASK FOR A BLANKET. PULLING AT RESTRAINTS OCCASIONALLY. NO ACUTE NEEDS AT THIS TIME.
--- NOTE | 2020-07-07 18:22 | NUR ---
SHIFT SUMMARY: PT REMAINS ON 0.3MCG/KG AT THIS TIME. BRADYCARDIC WITH HR BETWEEN 48-52. REMAINING VSS. DR EPRRY CAME TO SEE PT THIS AFTERNOON BUT WAS UNABLE TO EVALUATE DUE TO LETHARGY. PLAN IS FOR COURT BOX CUTTER TO COME SEE PT TOMORROW AT 2PM. PODIATRIC SURGEON AWARE. [address]
--- NOTE | 2020-07-07 20:15 | NUR ---
PATIENT AWAKENS TO VERBAL STIMULI, ORIENTATED TO BEING IN ICU, BUT THINKING IT IS MORNING. WHEN SLEEPING HEART RATE DOWN TO LOW 40'S, PRECEDEX TITRATED DOWN TO 0.2 MCG. PATIENT ATE A FULL SANDWICH AND V8 JUICE WITH ASSISTANCE. PATIENT CONTINUES IN 4 POINT RESTRAINTS DUE TO UNPREDICTABLE BEHAVIOR AND PULLING AT HEART MONITOR AND IV LINES WHEN AWAKE. BOTH ARMS MOVED DOWN TO HIS SIDE FOR COMFORT. PATIENT VERBALIZED THAT THE TUFF CUFFS ARE MAKING HIM STRESS BECAUSE OF HIS OBDUCTION WITH THE ALIENS AND THAT HE CAN'T FIGHT THEM OFF. REASSURED PATIENT THAT HE IS IN A SAFE PLACE AND THAT I WILL BE KEEPING A CLOSE EYE ON HIM AND REMINDING PATIENT THAT THERE IS ALSO A PERSON WATCHING HIS ROOM ON A CAMERA IN THE ROOM. THIS APPEARS TO HAVE HELPED PATIENT RELAX.
--- NOTE | 2020-07-07 20:52 | NUR ---
PATIENT AWAKE WANTING TO GO HOME, EXPLAINED THAT HE IS STILL ON A 2 MD HOLD AT THAT HE CAN'T LEAVE. PATIENT WANTING TO FILE A GRIEVANCE REGARDING BEING HELD AGAINST HIS WILL. PATIENT VERBALIZED THAT HE WAS NOT TRYING TO HARM HIMSELF HE WAS TRYING TO GET HIGH, HE SMOKES THE DELEON BECAUSE IT TASTES LIKE MARIJUANA. WHEN INFORMED THAT HE WILL NOT BE ABLE TO LEAVE UNTIL A DOCTOR SAYS HE CAN LEAVE, PATIENT ASKING FOR SOMETHING FOR PAIN OR TO KNOCK HIM OUT. PRECEDEX BACK TO 0.3 MCG AND ATIVAN IV GIVEN TO HELP PATIENT RELAX.
--- NOTE | 2020-07-08 07:22 | NUR ---
SUMMARY PATIENT SLEEPING WITH PRECEDEX 0.3 MCG, WHEN TITRATING PRECEDEX DOWN TO 0.2 MCG PATIENT AWAKE AND YELLING OUT AT STAFF. PATIENT WANTING TO GO HOME BECAUSE HE HAS A BUSINESS DEAL THAT NEEDS TO BE TAKEN CARE OF. EXPLAINED TO PATIENT SEVERAL TIMES DURING THE NIGHT THAT HE IS ON A 2 MD HOLD AND THAT HE CAN NOT LEAVE UNTIL HE IS CLEARED BY THE DOCTORS. CONDOM CATH REMAINS IN PLACE. AT TIMES PATIENT ASSISTING WITH CARE AND AT OTHER TIMES ATTEMPTING TO PULL OFF BLACK BELT.
--- NOTE | 2020-07-08 07:34 | NUR ---
Received report from Mickie PARADA. Patient awake in bed calling out for nurse intermitently. He is on RA and sats >95%. He is alert and able to communicate his needs. Mickie PARADA and I talkd with him and gave him time line and plan for the day as he continues to ask to go home, but states he knows he on 2 MD hold and has to wait. He has two IV's and 18ga IV RH flushed and SL, and the [id number] LFA infusing NS at 150 ml/hr and Precedex at 0.3 mcg/kg/hr. He has condom cath in place draining to gravity yellow urine. He remains in 4 point TAT restraints, circulation and skin checked at start of shift. He is SR 60's and systolics 170's. He is able to repositions self for comfort even with restraints in place.
--- NOTE | 2020-07-08 09:33 | NUR ---
Patient continues to rest and has not been calling out. NS at 150 ml/hr and Precedex at 0.3 mcg/kg/hr. Continues to have condom cath and has clear yellow urine draining to gravity.
--- NOTE | 2020-07-08 11:33 | NUR ---
Patient has called out several times for meals then stating he was anxious. medicated once with Ativan and IV bad and wasted in bed. Started new 20 ga IV in RFA and re administerd Ativan 2 mg and is doing better now. I was able to release restraints one at a time and we gave him a bath and replaced restraints. Replaced condom cath as the other was loose, placed small condom cath. He refused hair washing and stated against religon. Fluids continue to run NS at 150 ml/hr and Precedex at 0.3 mcg/kg/hr. he is cooperative with care.
--- NOTE | 2020-07-08 12:11 | NUR ---
0915 In ICU to follow up on patient to assess if able to engage in safety plan. RN reports patient medicated for agitation and restrained. RN stated received in report a court hearing at 2 pm today. Electrical System Specialist and RN given phone number for Pre-Commitment Licensed Mortgage Loan Officer, Delmy Marie, at [facility] to confirm purpose of 2 pm occurrence. Tangela Rock M.Ed., [facility]
--- NOTE | 2020-07-08 13:33 | NUR ---
Dr Delatorre by to see patient and patient started to yell and get agressive toward him and Dr Delatorre step out of room to reduce the stimuli. Patient really wants to make his point and does not know the correct way. Pastoral care came by and patient only wants to see father Murphy and asked her to leave. He remains hypertensive r/t agitation. He is cooperative with my care.
--- NOTE | 2020-07-08 14:16 | NUR ---
Joint visit with Father Murphy upon patient's request. Patient tells us he wants to be saved, wants to confess all his sins and wants us to tell us about the miracles he has performed. Patient gets violent at times when he can't remember what he wanted to say. He asks Father Murphy to pray for him then patient would interrupt Father when he would begin praying. Patient then told us that he was Heriberto Nestor and that is why he could do miracles. We hear confession, provide pastoral memorial counselor and prayer (patient finally is quiet and allows Father to say a prayer). Father explains to patient that he needs to take his medicine and comply with medical staff and allow for God to help him and then he would have a chance to be well. Patient seems more calm after the prayer.
--- NOTE | 2020-07-08 14:40 | NUR ---
Met pt. lying in bed resting . Chaplain Portillo. and I went to see him and as the pt. requested . We had a nice visit with pt. and at the end of our visit I offered prayers for the pt, and he gave thanks.
--- NOTE | 2020-07-08 15:30 | NUR ---
Patient has been resting in bed and awakens and makes request'Can I have a bible when Father Murphy comes tomorrow", "Can I have more Saline" etc.. VS have been better with rest. Compass came by and made agreement with patient and I typed it up for each shift to review, he has agreed to cooperate with these 6 rules and this prevents commitment if he follows rules. He continues with NS at 75ml/hr that Dr Nieves reduced and Precedex at 0.3 mcg/kg/hr. Condom cath in place.
--- NOTE | 2020-07-08 18:00 | NUR ---
Patient up in chair. Condom cath came off and he saturated bed with urine and cleaned bed and replaced linen. I gave him agreement and he read and stated yes he agreed to rules. VSS, See EMR. He is currently resting in chair on RA and sats >95%. Medicated with Ativan 2 mg for agitation. He tolerated dinner well. He ambulated with SBA very well to chair.
--- NOTE | 2020-07-08 19:20 | NUR ---
ASSUMED CARE OF PT, BEDSIDE REPORT RECEIVED. PT IS RESTING QUEITLY IN RECLINER CHAIR, REVIEWED COMPASS CONTRACT WITH PT, HE VERBALIZES UNDERSTANDING. PT REQUESTS TO HAVE CONDOM CATH IN PLACE, HE DOES STATE THAT HE IS NOT USUALLY INCONTINENT AT HOME BUT THAT HE DOES NOT LIKE TO USE TOILETS THAT OTHER PEOPLE USE. DISCUSSED WITH PT THAT NO ONE ELSE WILL BE USING TOILET IN ROOM. PT IS ENCOURAGED TO CALL FOR ASSISTANCE WITH AMBULATION AND NOT GET OUT OF BED WITHOUT STAFF PRESENT, HE IS ENCOURAGED TO USE EITHER TOILET OR URINAL IN ROOM. HE DOES STATE THAT ON THE OCCASIONS THAT HE IS INCONTINENT AT HOME, HE HAS TO CHANGE HIS BEDDING AND CLEAN HIMSELF, REVIEWED WITH PT THAT HE IS CAPABLE OF BEDDING CHANGES OF THIS TIME AND HE WILL ASSIST WITH CLEANING ANY EPISODES OF URINARY INCONTINENCE THIS SHIFT. REVIEWED PLAN FOR MEDICATIONS WITH PT WELL NEXT AVAILABLE ATIVAN IS AT 2018, WILL PLAN FOR HS MEDS WITH NEXT AVAILABLE ATIVAN. PRECEDEX GTT NOTED AT 0.3 MCG/KG/HR, NS AT 75 ML/HR TO IV ACCESS IN RIGHT FOREARM.
--- NOTE | 2020-07-09 07:25 | NUR ---
PT RESTS QUIETLY THIS SHIFT, HAS BEEN COMPLIANT WITH CARE. HE DOES REQUEST ATIVAN AT ANY TIME THAT HE IS AWAKE WELL SOMETHING TO SNACK ON. AFTER EXPLAINING TO PT THAT HE WOULD BE EXPECTED TO ASSIST WITH LINEN CHANGES AND CLEANING UP URINARY INCONTINENCE RESULTING FROM REFUSAL TO USE TOILET IN ROOM, PT HAS BEEN UP TO VOID IN TOILET AND CONTINENT OF URINE THROUGHOUT NOC. STATES THAT HE UNDERSTANDS BEHAVIOR AGREEMENT WITH COMPASS EARLY IN SHIFT. NO ACUTE CHANGES THROUGHOUT NOC.
--- NOTE | 2020-07-09 08:00 | NUR ---
Received report from Yenifer PARADA. Patient resting in bed and awakens to verbal stimuli. Medicated with Ativan for agitation. patient has been up several times to bathroom and is stable with SBA. He needs help with lines and tubes. He read agreement and returned understanding of information and i reaffirmed that he understood and he stated "yes". he is on RA and sats >95%.
--- NOTE | 2020-07-09 09:02 | NUR ---
He ate 100% breakfast and is now currently up in shower. Dr Nieves by and changed Ativan to 1-4 mg Q2 and Xanax 1 mg Q6. He request to use pen and under supervision when using VSS, See EMR.
--- NOTE | 2020-07-09 10:38 | NUR ---
Compass by and re affirmed agreement and patient stated he understands He has been up with BRP and pacing in room. He was able to call parents and call lasted about ten minutes. VSS, See EMR. He boocked at taking PO Xanax and discussed agreement with him and finally after some discussion he stated he would take.
--- NOTE | 2020-07-09 12:26 | NUR ---
Patient has had increased agitation and all benzo's dc'd, called Dr Delatorre for something to add and he stated to try 10mg Zyprexa IM and call him with results after 1300. Patient continues to pace in room. He wanted top get in long conversation about what works and what doesnt and i needed to have an in depth dicussion to follow agreement and if not will have Compass follow agreement. Patient currently in bed quiet. He has been getting up and pacing room and then back to bed. He is med no tele. VSS, See EMR.
--- NOTE | 2020-07-09 14:55 | NUR ---
Patient has been up and dowmn in room. Still requesting Ativan although many times have reviewed treatment plan. He also ask to speak to Dr briones for muscle relaxers for bad knee that he states that feels better when up walking on them. VSS, See EMR. Cttient currently on phone with father. Patient took seroquel 50 mg per order.
--- NOTE | 2020-07-09 18:00 | NUR ---
Medicated patient per mar after parents left with Benadryl, Haldol, Ativan. He has been sleeping since. VSS, See EMR. PowerGlide in MINDY flusheed and SL'd. He is SBA up to bathroom.
--- NOTE | 2020-07-09 20:00 | NUR ---
ASSUMED CARE OF PT AT 1915. REPORT RECEIVED. PT PRESENTS IN BED SLEEPING. NO ACTIONS OF SELF HARM OR BEHAVIORAL ISSUES AT THIS TIME. WILL REVIEW CHART AND PLAN OF CARE FOR THIS PT.
--- NOTE | 2020-07-10 00:41 | NUR ---
PT HAS BEEN SLEEPING THROUGHOUT THE SHIFT. DOES AWAKEN TO TAKE HS ZYPREXA VERIFIED PT SWALLOWED MEDICATION. NO AGITATION OR ANXIOUSNESS NOTED. PT DENIES ANY COMPLAINTS. DOES ASK FOR SANDWHICH WHICH HAS BEEN PROVIDED. NO S/S SELF HARMING BEHAVIOR. NO VOICED INTENTION OF SELF HARM. NO SUICIDAL IDEATIONS. CONTINUES ON REMOTE CAMERA MONTIORING.
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
--- NOTE | 2020-07-10 08:00 | NUR ---
PATIENT INTERACTION PATIENT DEMANDING HIS ROOM BE CLEANED BECAUSE HE URINATED ON THE FLOOR. PATIENT REPORTS THAT HE "DOES NOT LIKE USING THE TOILET THAT OTHERS ARE USING" EVEN THOUGH NO ONE ELSE IS USING HIS TOILET. REMINDED PATIENT THAT HE HAD NOT UTILIZED THE TOILET YESTERDAY WHEN RAHUL PARADA WAS HERE AND POOPED ON THE FLOOR. PER RAHUL, THE PATIENT "WANTED TO KEEP A QUARTER IN THAT WAS SPECIAL TO HIM, AND DID NOT WANT TO POOP IT OUT." PATIENT THEN STATED "YOU ALL ARE A BUNCH OF RETARDS." PATIENT ADVISED HE WILL NOT CALL STAFF NAMES AND HE NEEDED RETURN TO BED. PATIENT MUMBLED SOMETHING, AND WHEN I RETURNED TO ROOM, PULLED THE CURTAIN. PATIENT AGAIN NOTIFIED THAT CURTAIN IS TO REMAIN OPEN. UPDATED PRIMARY RN BERNARDO.
--- NOTE | 2020-07-10 08:25 | NUR ---
PT CONTINUALLY PACING AROUND ROOM AND FREQUENTLY EXITING ROOM INTO HALLWAY, REQUIRING FREQUENT REDIRECTION BACK TO HIS ROOM. PT ALSO FREQUENTLY ASKING FOR ATIVAN VIA IV, PT INFORMED ABOUT ORDERS PLACED FOR IM INJECTION, PT ASKS FOR DR TO CHANGE IT. PT REMINDED OF BEHAVIORAL CONTRACT, STATES HE IS WILLING TO TAKE THE MEDICATIONS ORDERED. PT ALSO REQUESTING NICOTINE PATCH, BUT WHEN ASKED ABOUT HOW MUCH PER DAY HE SMOKES HE SAYS HE ONLY SMOKES EVERY ONCE IN A WHILE. DR DELGADO TO AND FROM ROOM FOR JEANINE. PT MEDICATED PER EMAR WITH IM INJECTION OF ATIVAN, BENADRYL, HALDOL.
--- NOTE | 2020-07-10 12:22 | NUR ---
PT RESTS QUIETLY IN ROOM FOR APPROX 3 HOURS, MORE RECENTLY HAS BEEN UP AND ACTIVE IN ROOM. PT REQUESTING MORE MUSCLE RELAXER, INFORMED OF TIME FRAME. PT ALSO REQUESTING TO USE A SCALE TO WEIGH HIMSELF. PT CURRENTLY WITH MEAL TRAY IN ROOM, WILL ASSIST WITH WEIGHT ONCE HE IS FINISHED. WILL CONTINUE TO MONITOR AND TREAT ACCORDINGLY.
--- NOTE | 2020-07-10 13:32 | NUR ---
SPOKE WITH PANDORA PCPs SPOKE WITH PCPs DR. JARVIS, WHO HAS CARED FOR PATIENT SINCE LAST SUMMER AND JAGRUTI NOLAND, WHO CARED FOR PATIENT BEFORE DR. JARVIS WITH THE GOAL OF DETERMINING HOME RX REGIMEN SPECIFIC TO BENZOS. THE PATIENT IS MAKING FREQUENT VERBAL REQUESTS AND DEMANDS FOR "MORE ATIVAN", ALSO ONLY WANTS ATIVAN IV AND REQUESTS TO SPEAK TO THE PROVIDER TO INCREASE THE DOSING FREQUENCY. PER JAGRUTI NOLAND, THE PATIENT DID HAVE ANXIETY, BUT ALSO SHOWED "DRUG SEEKING BEHAVIOR" AND SHE ONLY PROVIDED PATIENT WITH 3 TABS PER WEEK OF EITHER XANAX OR CLONAZEPINE. SHE STATED THE PATIENT COULD NOT ABIDE BY ANY ATTEMPTS AT ESTABLISHING LIMITATIONS AND WOULD OFTEN CALL FOR AN EARLY REFILLS. DR. JARVIS SAID HE HAD ALSO PRESCRIBED PRN BENZOS FOR THE PATIENT. THE PATIENT DID EXHIBIT ANXIETY, AND BENZOS DID HELP IN THE BEGINNING, BUT AFTER THAT "HE HAS BEEN ABUSING THEM" AND RECENTLY PRESCRIBED BENZOS BECAUSE THE PATIENT'S MOTHER WAS HAVING A DIFFICULT TIME AT HOME WITH AGGRESSION AND AGITATION, SO PRN BENZOS ORDERED TO HELP CALM/DE-ESCALATE THE PATIENT, AND THAT THESE OUTBURSTS ARE A LEARNED BEHAVIOR. UPDATE TO PRIMARY RN & GREGORIO STARK.
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
--- NOTE | 2020-07-10 15:11 | NUR ---
PT RESTING QUIETLY IN BED AT THIS TIME, HAS BEEN RESTING QUIETLY FOR A COUPLE HOURS NOW. RESPIRATIONS EVEN AND UNLABORED. NADN. WILL CONTINUE TO MONITOR.
--- NOTE | 2020-07-10 19:01 | NUR ---
SHIFT SUMMARY: PT CONTINUES ALERT T/OUT SHIFT, WITH PERIODS OF PACING AROUND HIS ROOM AND OFTEN COMING TO THE DOOR OR INTO THE HALLWAY TO ASK FOR A VARIETY OF THINGS, ESPECIALLY ATIVAN. PT STATING OFTEN THAT HE TOOK THE ZYPREXA ALL AT ONCE TO "GET HIGH", NOT TO HARM HIMSELF, STATES HE SHOULD GET TO GO HOME BECAUSE HE ISN'T HERE FOR A "PSYCH PROBLEM". PT REMINDED OF BEING ADMITTED FOR A BEHAVIORAL HEALTH PROBLEM WITH INTENTION TO KEEP HIM SAFE. PT REQUIRING REDIRECTION OFTEN, IS COOPERATIVE WHEN REMINDED OF CARE PLAN. WILL CONTINUE TO MONITOR AND TREAT ACCORDINGLY UNTIL CHANGE OF SHIFT.
--- NOTE | 2020-07-11 01:45 | NUR ---
START OF SHIFT PT WAS PACING IN ROOM, COMING TO DOOR AND CALLING OUT FOR STAFF. PT WAS REQUESTING ATIVAN. WHEN IN THE ROOM TO ASSESS PT AND DISCUSS PLAN OF CARE PT BECAME ARGUMENTATIVE STATING HE WANTED ATIVAN ONLY AND A COPY OF THE NEWS PAPER. I DISCUSSED THE WARNING FORM WITH THE PT AND HE READ IT ALOUD. PT STATED HE WAS NOT ARGUING WITH STAFF. HE WAS REFUSING MEDICATIONS DUE TO SIDE EFFECTS FROM HALOPERIDOL. PT STATED "IT MAKES MY BONES HURT AND I CAN NOT MOVE MY ARM. IT GIVES ME DIABETIC SYMPTOMS AND MAKES MY NIPPLES BLEED." PT WAS BECOMING MORE AGITATED STATING HE WANTED A SIGNED CONTRACT WITH HIS NAME ON IT BEFORE HE WOULD COOPERATE. IT WAS EXPLAINED TO THE PT THAT HE HAD THE MEDICATION EARLIER IN THE DAY WITH NONE OF THE PREVIOUSLY STATED SIGNS. I THEN SHOWED THE PT A COPY OF DIRECTIONS FROM THE OR HEALTH [employer] AND PT WAS THEN AGREEABLE TO TAKE MEDICATIONS. PT HAS SINCE BEEN QUIET IN BED.
--- NOTE | 2020-07-11 06:49 | NUR ---
SHIFT SUMMARY AFTER PT WAS GIVEN ANXIOLYTICS NEAR START OF SHIFT DUE TO PT BECOMING ESCULATED, HE WAS QUIET IN BED MOST OF THE NIGHT. PT ASKED FOR SANDWICHES SEVERAL TIMES T/O THE NIGHT BUT WAS OTHERWISE QUIET IN HIS ROOM IN BED. PT UP PACING IN HIS ROOM THIS AM. VITALS STABLE T/O THE SHIFT.
--- NOTE | 2020-07-11 08:01 | NUR ---
PT A&O X4. PT REPORTS "KNEE PAIN" AND REQUESTS A "MUSCLE RELAXER." REQUEST GRANTED. PT STATES THAT HE THOUGHT THAT HE WAS GOING TO BE DISCHARGED TODAY FOR "GOOD BEHAVIOR." PT REMINDED THAT HE IS ON A HOLD AND A DIVERSION CONTRACT. PT STATES "I NEVER SIGNED THAT. IT IS NOT VALID." PT PROVIDED WITH COPY OF SIGNED DIVERSION COURT ORDER. PT STATES "I GUESS NEXT TIME I WILL GET HIGH ON MY OWN AT MY OWN PLACE." PT ALSO STATES THAT HE NEEDS THE "HALDOL" TO BE LISTED AN ALLERGY IT "MAKES MY ARMS FEEL WEIRD." PT HAVING FLIGHT OF IDEAS. PT REQUESTING A COPY OF THE FREE CRISELDA'S NEWSLETTER. PT ASKING MULTIPLE STAFF MEMBERS TO PRINT THE LETTER FOR HIM. PT INFORMED THAT STAFF WILL ATTEMPT TO HONOR THIS REQUEST LATER. BP ELEVATED-SEE FLOWSHEET. OTHERWISE PHYSICAL ASSESSMENT WNL.WILL PROVIDE WARNING IF PT NOT ADHERING TO PLAN OF CARE. WILL HAVE 2 RN PRESENT IF WARNING GIVEN.
--- NOTE | 2020-07-11 08:05 | NUR ---
WHEN DOING PT SUICIDE ASSESSMENT, INITIALLY, PT VERY AGITATED. PT STATES "I ANSWERED THAT YESTERDAY." PT INFORMED THAT THE SUICIDE ASSESSMENT IS DONE ON AN ONGOING BASIS AND ENCOURAGED TO ANSWER THE QUESTION AT HAND. PT STATES "NO, OF COURSE NOT!"
--- NOTE | 2020-07-11 08:30 | NUR ---
PT REPORTS FEELING AGITATED AND ASKS FOR "MY MEDS." PT REQUESTING SEROQUEL AND ZYPREXA. PT WANTS HIS PLAN OF CARE FOR TODAY TO INCLUDE DISCONTINUATION OF HALDOL AND ALLOWANCE FOR ZYPREXA PRN DURING THE DAY. LISTED ON WHITE BOARD IN ROOM AND WILL DISCUSS WITH DR. PERRY TODAY. PT MED WITH SEROQUEL. PT ASKING FOR ATIVAN WELL. PT AGREED TO TAKE THE SEROQUEL AND THEN RN TO RE-ASSESS IN 30 MINUTES. IF AGITATION CONTINUES, WILL MED WITH ATIVAN AT THAT TIME.
--- NOTE | 2020-07-11 08:42 | NUR ---
Patient requests an Old Testament Bible and so I bring patient a Bible that includes the Old Testament. Patient talks about his dreams of the end of times and about the spiritual romero going on inside his head. I listen empathically and provide spiritual guidance and prayer. Patient responds well and voices appreciation for the Bible. I will continue to remain available to patient and and family.
--- NOTE | 2020-07-11 09:00 | NUR ---
PT ASKED IF THE SEROQUEL HAS HELPED HIS ANXIETY. PT STATES "YES, I AM GOOD RIGHT NOW." PT APPEARS TO BE SLEEPING WHEN NOT DISTURBED.
--- NOTE | 2020-07-11 10:30 | NUR ---
ACT TEAM AND DOREEN CR @ BEDSIDE DISCUSSING PT DISCHARGE PLAN. PT REFUSING ACT SERVICES AT THIS TIME. PT STATES "I NEED TO GET A CAREGIVER FIRST."
--- NOTE | 2020-07-11 11:00 | NUR ---
PT AGREEABLE TO SHOWER. HOWEVER, ONCE IN THE SHOWER-PT APPEARED ANXIOUS AND PARANOID. PT VERBALIZING FEAR OF THE "SOAP." PT REPORTED TO TAL SNYDER THAT HE IS FEELING ANXIOUS AND REQUESTED "ATIVAN." PT ENCOURAGED TO SHOWER AND THEN RN TO REEVALUATE ANXIETY ONCE PT RETURNS TO ROOM. PT REQUEST ATVAN AND A SODA UPON RETURN TO THE ROOM. REQUEST GRANTED. PT INITIALLY TOLD RN THAT HE WANTED THE INJECTION IN HIS LEFT BUTTOCKS. THEN WHEN RN WIPED THE SITE AND PREPARED TO GIVE THE INJUECTION, PT STATES,"WAIT! I WANT IT IN MY ARM!" PT DID THIS PROCESS SEVERAL TIMES BEFORE ULTIMATELY REQUESTING THAT INJUCTION BE GIVEN IN HIS LEFT BUTTOCKS-SEE EMAR.
--- NOTE | 2020-07-11 12:00 | NUR ---
PT CONTINUES TO DENY SI/HI. REPORTS FEELING ANXIOUS DESPITE BEING MEDICATED WITH ATIVAN 3 MG IM-SEE EMAR. PT REQUESTING SEROQUEL. WILL HONOR REQUEST.VS WDL. PT EATING 100% OF MEALS.
--- NOTE | 2020-07-11 12:30 | NUR ---
PT UP AND PACING IN THE ROOM. PT REPORTS CONTINUED AGITATION AND ANXIETY. REQUESTED BENADRYL-MED WITH BENADRYL IM-SEE EMAR.
--- NOTE | 2020-07-11 13:48 | NUR ---
PT APPEARS AGITATED. PACING IN THE ROOM. PT CALLING OUT TO STAFF MEMBERS PASSING THE ROOM AND MAKING FREQUENT UNATTAINABLE DEMANDS. FOR EXAMPLE:PT REQUESTING TO AMBULATE OUTSIDE BY THE POND. PT REQUESTING ADDITIONAL LUNCH TRAY. HE ATE 100% OF LUNCH. HE WAS GIVEN 3 20 OZ. PEPSI'S WITHIN 30 MIN TIME FRAME. WILL SET LIMIT OF 1 SODA EVERY 2 HOURS.
--- NOTE | 2020-07-11 16:00 | NUR ---
PT CONTINUES TO BE RESTLESS AND AGITATED. PT WITH AUDITORY AND VISUAL HALLUCINATIONS. PT WHISPERING TO "OTHERS" HE STATES ARE IN THE ROOM, BUT NOT WILLING TO TELL RN TO WHOM HE IS SPEAKING. PT CONTINUES TO DENY SUICIDAL AND HOMICIDAL IDEATION. MED WITH ATIVAN 3 MG, HALDOL 5 MG, AND BENADRYL 25 MG IM X 1-SEE EMAR.
--- NOTE | 2020-07-11 16:28 | NUR ---
PT PULLED THE CURTAIN SLIGHTLY, THEN CRAWLED IN BED. CURTAIN STILL OPEN FOR RN TO VISUALIZE PT ACTIVITY. PT OBSERVED MASTURBATING.
--- NOTE | 2020-07-11 17:04 | NUR ---
PT REQUESTED PJ BOTTOMS AND A CLEAN UNDERGARMET/ATTENDS. PT GIVEN ITEMS PER REQUEST. PT ALSO GIVEN FITTED SHEET SO THAT HE COULD CHANGE HIS BED(PT EJACULATED ALL OVER THE BEDDING.) PT CHANGED THE SHEETS AND HIS OWN UNDERGARMENTS WITHOUT DIFFICULTY.
--- NOTE | 2020-07-11 17:46 | NUR ---
PT DEMANDING ADDITIONAL FOOD AFTER EATING 100% OF DINNER TRAY. PT INFORMED THAT HE MAY HAVE ONE SANDWICH OR SNACK IN BETWEEN MEALS AND 1 SODA EVERY 2 HOURS. PT CURRENTLY AGREES WITH THIS LIMIT. PT AGITATED AND PACING AROUND THE ROOM. PT REQUESTING "ATIVAN" PT INFORMED THAT HE IS NOT DUE FOR PRN FOR AGITATION UNTIL 1999. PT PARENTS CALLED THE ICU REQUESTING TO VISIT. VISIT NOT ALLOWED PT BEHAVIOR ESCALATING AND CONCERN FOR FURTHER ESCALATION WITH VISITATION.
--- NOTE | 2020-07-11 17:52 | NUR ---
PT PARENTS CONTACTED AND GIVEN UPDATE TO PT STATUS AND PLAN OF CARE. PT MOTHER REQUESTING TO VISIT TOMORROW. INFORMED OF VISITING HOURS AND ENCOURAGED HER TO CONTACT THE RN CARING FOR DO TOMORROW TO CONFIRM THAT PT IS APPROPRIATE FOR VISITATION.
--- NOTE | 2020-07-11 23:41 | NUR ---
ASSUMED PT CARE AT 1915 FROM TAL ELAM PT LYING IN BED. ABLE TO MAKE NEEDS KNOWN. CALM AND COOPERATIVE UPON ASSUMPTION OF CARE. PT REQUESTED NICOTINE PATCH AND ATIVAN FOR AGITATION DURING NIGHT TIME MED PASS. PT COMPLIANT WITH TAKING MEDICATIONS. DENIES ANY SUICIDAL IDEATION, WELL DENIES ANY VISUAL OR AUDITORY HALLUCINATIONS AT THIS TIME. PT IS CURRENTLY SLEEPING. ORDERS OBTAINED FOR NICOTINE PATCH 14MG DAILY.
--- NOTE | 2020-07-12 03:31 | NUR ---
CALL TO DR. SANTOS D/T INCREASE IN PRESSOR REQUIREMENT. NEW ORDERS FOR EPI GTT AND OKAY TO DRAW AN ABG FROM THE ARTERIAL LINE INSTEAD OF A VBG.
--- NOTE | 2020-07-12 06:40 | NUR ---
END OF SHIFT SUMMARY PT SLEPT MOST OF SHIFT. NO BEHAVIORS. VERY APPROPRIATE WITH CARES AND AGREED TO ALL MEDICATIONS. CALL LIGHT WITHIN REACH. WILL CONTINUE TO MONITOR UNTIL REPORT IS HANDED OFF TO ONCOMING RN
--- NOTE | 2020-07-12 06:59 | NUR ---
PT UP IN ROOM WALKING AROUND NAKED
--- NOTE | 2020-07-12 08:46 | NUR ---
ASSUMED CARE REPORT FROM TAL ZARAGOZA. PT UP IN ROOM PACING, NAKED. ALICE, JOURNEY LINEMAN, WENT IN AND HAD PT PUT UNDERWEAR ON. PT TRIED TO REFUSE AT FIRST, BUT THEN COOPERATED. PT ASKED FOR FLEXERIL WITH HIS MORNING MEDS FOR HIS KNEE PAIN, GIVEN. PT REPORT TO DR. DELGADO WHEN SHE WAS IN ON ROUNDS THAT THE FEXERIL HELPS THE PAIN A LOT. PT ALSO REQUESTED ATIVAN BECAUSE HE SAYS IT HELPS HIS DELUSIONS. INFORMED PT THAT WE ARE NOT GIVING ATIVAN SEPARATELY. HE THEN REQUESTED TO BE HOOKED UP TO AN IV BECAUSE HE FEELS IT MAKES HIM FEEL MORE HYDRATED. TOLD PT WE WON'T BE RESTARTING IV FLUIDS RIGHT NOW BUT HE CAN HAVE A BIG CUP OF WATER WHICH HE ACCEPTED. PT CALLED HIS PARENTS AND THEN ASKED IF THEY CAN VISIT THIS AFTERNOON. INFORMED HIM THAT IT DEPENDS ON HIS BEHAVIOR. HE ASKED IF HE HAS HAD GOOD BEHAVIOR TODAY AND HE WAS TOLD HE HAS, BUT HE HAS TO CONTINUE IT. PT ATE BREAKFAST AND IS CURRENTLY GOING BETWEEN LYING DOWN AND PACING IN THE ROOM.
--- NOTE | 2020-07-12 09:45 | NUR ---
agitation PT REQUESTING ATIVAN FOR HIS DELUSIONS AGAIN. PT HAD BEEN LAYING QUIETLY IN BED. INFORMED PT AGAIN THAT HE ATIVAN ISN'T AVILABLE FOR HIM TO HAVE ALONE. PT THEN ASKED HOW AGITATED HE NEEDED TO GET TO GET THE ATIVAN AND HALDOL. TOLD PT THAT NURSING STAFF WILL ASSESS THE NEED FOR IT. PT THENCALLED HIS PARENTS TELLING THEM THAT HE WASN'T GETTING HIS MEDS. HE THEN ASKED TO TALK TO THE DOCTOR ABOUT HIS MEDS AND HE WAS INFORMED HE CAN DO THAT WHEN THEY ROUND. PT CONTINUED TO GET WORKED UP SO ATIVAN, HALDOL AND BENADRYL WERE ULTIMATELY GIVEN. PT RESTING IN BED ONCE AGAIN.
--- NOTE | 2020-07-12 12:47 | NUR ---
PT GOT UP TO THE SHOWER BUT WOULDN'T USE SOAP DESPITE REMINDERS FROM STAFF. ASKED PT TO WASH HIS HAIR AND HE REFUSED SAYING IT IS AGAINST HIS LUTHERAN. ASKED HIM JUST TO GET HIS HAIR WET TO RINSE IT AND HE SAYS HE GAVE UP GETTING HIS HAIR WET FOR LENT. PT HAS ASKED MULTIPLE TIMES THROUGHOUT THE DAY IF HIS PARENTS CAN COME VISIT AT VISITING HOURS. PT TOLD EACH TIME THAT THEY CAN VISIT LONG HE IS BEING COOPERATIVE AND FOLLOWING HIS PLAN.
--- NOTE | 2020-07-12 14:50 | NUR ---
PARENT VISIT PT'S PARENT'S CAME TO VISIT AFTER VERIFYING WITH THIS RN THAT IT WAS OK. WHILE THEY WERE IN THE ROOM PT STARTED TO GET AGITATED, ARGUING WITH HIS PARENTS. HIS PARENTS WERE AWARE OF THIS AND TRIED TO LEAVE, BUT PT PHYSICALLY BLOCKED THE DOOR. PARENT REMAINED CALM REQUESTING TO BE LET OUT. THIS RN TOLD PT HE NEEDED TO LET THEM OUT, THAT BLOCKING THEM FROM LEAVING WAS NOT IN LINE WITH HIS PLAN, BUT PT REFUSED. SECURITY CALLED TO ASSIST. PT DESCALATED SOME AND WAS SITTING ON THE BED WITH HIS PARENTS BY THE DOOR BY THE TIME THIS RN WAS OFF THE PHONE WITH SECURITY. PT STATED THAT HIS PARENTS HAD AGREED TO STAY, BUT THIS RN ASKED THEM TO LEAVE SINCE PT WAS STILL AGITATED AND THEY WERE AGREEABLE AND LEFT. PT STARTED TO GET UPSET, BUT WAS ABLE TO DISTRACT HIM WITH A SANDWICH THAT CAME UP. WHEN SECURITY GOT HERE PT TOLD THEM HE WAS UPSET WITH NURSING STAFF FOR MAKING HIS PARENTS LEAVE, BUT PT IS SITTING ON THE BED AND FOLLOWING INSTRUCTIONS. CONTINUING TO MONITOR.
--- NOTE | 2020-07-12 15:37 | NUR ---
PT REQUESTING MEDICATION. TOLD HE CAN HAVE SEROQUEL. PT ASKS IF HE CAN HAVE ZYPREXA AND WHEN TOLD NO, ASKS IF HE CAN TALK TO THE DOCTOR. TOLD PT HE CAN TALK WITH THE DOCTOR ABOUT IT TOMORROW, BUT SEROQUEL IS WHAT WE HAVE RIGHT NOW. PT TOOK THE SEROQUEL AND IS LYING BACK IN BED.
--- NOTE | 2020-07-12 17:46 | NUR ---
SHIFT SUMMARY PT HAS BEEN MOSTLY COOPERATIVE TODAY, BUT CONTINUES TO REQUEST ATIVAN THROUGHOUT THE SHIFT AND GETS AGITATED IF HE IS TOLD IT ISN'T AVAILABLE. THIS EVENING HE WAS TOLD ONCE AGAIN THAT SEROQUEL IS THE MEDICATION AVAILABLE AND PT STATES HE WANTS AN ANTI-ANXIETY, NOT AN ANTIPSYCHOTIC. HE DENIES SUICIDAL IDEATION WELL HALLUCINATIONS. WHEN HE REQUESTS ATIVAN HE SAYS IT IS FOR HIS DELUSIONS. LUNGS REMAIN CLEAR, RA, TACHY WITH HR AT 120, BP STABLE. PT EATS A LARGE AMOUNT OF FOOD, REQUESTED SECOND LUNCH AND DINNER TRAYS WELL SANDWICHES IN ADDITION TO HIS MEALS. HIS PARENTS VISITED BRIEFLY TODAY, WHICH CAUSED AGITATION. HE GOT IN THE SHOWER AND GOT WET, BUT REFUSED TO USE SOAP OR WASH HIS HAIR. OTHERWISE PT SPENT THE DAY LYING IN BED OR PACING BACK AND FORTH IN HIS ROOM.
--- NOTE | 2020-07-12 18:44 | NUR ---
PT WAS TRYING TO RAISE THE HEAD OF HIS BED AND RAISED UP THE WHOLE BED. ASSISTED HIM IN LOWERING THE BED BACK DOWN AND RAISING JUST THE HEAD OF THE BED. NEXT TIME THIS RN WENT IN THE WHOLE BED WAS RAISED UP IN THE AIR AGAIN AND IN TRENDELNBERG POSITION. LOWERED THE BED BACK TO THE LOWEST LEVEL AND PT GOT MAD THIS TIME ASKING WHY HE CAN'T HAVE THE WHOLE BED RAISED UP. EXPLAINED TO HIM IT'S NOT SAFE AND IT IS HOSPITAL POLICY TO KEEP THE BED AT THE LOWEST SETTING WHEN STAFF ISN'T IN THE ROOM IN ORDER TO MINIMIZE INJURY IF HE WERE TO FALL OUT OF BED. PT GOT UPSET YELLING THAT HE'S NOT A KID. PT ASKED TO CLOSE THE CURTAIN AND WAS TOLD THAT THE CURTAIN HAS TO STAY OPEN. TURNED OFF LIGHTS AT HIS REQUEST AND PT IS LYING IN BED NOW. BED REMAINS AT LOWEST SETTING.
--- NOTE | 2020-07-13 05:48 | NUR ---
SHIFT SUMMARY PT RESTED THROUGH THE NIGHT - ABLE TO MAKE NEEDS KNOWN. VSS - NO C/O PAIN. PATIENT SAID SEROQUEL DID NOT HELP, AND PT ENDED UP DECIDING TO REFUSE MEDICATION. PT SLEPT MOST OF NIGHT UNTIL ABOUT 0400, AND THEN PATIENT BEGAN TO GET VERY FRUSTRATED WITH PLAN OF CARE. PT REQUESTING THAT HE IS TO BE DISCHARGED EARLIER THAN THE ANTICIPATED DISCHARGE DATE. HE DOES NOT FEEL THAT HAS DONE ANYTHING WRONG, AND JUST "WANTS TO BE HIGH", AND "DO HE PLEASES WITH HIS BODY." PT HAS QUESTIONS ABOUT PLAN OF CARE AND DOESNT SEEM TO UNDERSTAND WHY HE HAS TO WAIT HERE TO BE COMMITTED, WHICH IS SOMETHING HE HAS EXPRESSED HE HAS NO DESIRE TO DO. SEE EMAR. CALL LIGHT WITHIN REACH, BED IN LOWEST POSITION. WILL CONTINUE TO MONITOR.
--- NOTE | 2020-07-13 10:59 | NUR ---
ASSUMED CARE AT 0700, REPORT FROM [facility]. SHORTLY AFTER START OF SHIFT PT IS STANDING AT DOOR STATING WANTS HIS VITALS CHECKED. IN ROOM TO ASSESS AND OBTAIN VITALS. MULTIPLE REQUESTS MADE ONE RIGHT AFTER THE OTHER. "I WANT A SANDWHICH", "I NEED MY MUSCLE RELAXER", "CAN I HAVE A NICOTINE PATCH"? DURING VITALS PT PUTS MOUTH OVER THE IV PORT IN LEFT ELBOW AREA, WHEN ASKED PT WHAT HE WAS DOING HE STATES "MY IV NEEDS FLUSHED". REQUESTS MULTIPLE TIMES TO SEE THE DOCTOR, REQUESTS TO GO HOME, AND STATES HE NEEDS HIS SMART PHONE. STATES THE HOSPITAL NEEDS TO PAY HIS LOST WAGES SINCE HE CANNOT DO HIS WORK ON HIS SMART PHONE. REPORT MULTIPLE TIMES THAT JUST BECAUSE HE WANTED TO GET HIGH DOESN'T MEAN HE WANTED TO KILL HIMSELF. REORIENTED ON 14 DAY DIVERSION. PT STATES NO LONGER WANTS DIVERSION AND WOULD LIKE TO GO HOME. ADVISED WOULD CONTACT [facility] AND LET THEM KNOW HIS WISHES. WHEN ATTEMPTING TO CALL EARLY CHILDHOOD EDUCATION SPECIALIST FOR UPDATE FROM [facility] PT INTERRUPTS AND STATES "NEVER MIND, I'LL STAY". WILL CONTINUE TO MONITOR.
--- NOTE | 2020-07-13 15:08 | NUR ---
IN ROOM TO MEDICATE WITH ODERED SEROQUEL. PT ARGUES THAT ZYPREXA WOULD BE BETTER. "I DON'T UNDERSTAND WHY YOU WOULD GIVE ME SOMETHING THAT DOES NOTHING MEDICALLY". THEN ASKS FOR ATIVAN OR HALDOL. WHEN ASKED WHY HE FEELS HE NEEDS THOSE HE STATES BECAUSE THEY MAKE HIM FEEL BETTER. AGREES TO TAKE SEROQUEL, PARENTS AT BEDSIDE, WILL CONTINUE TO MONITOR.
--- NOTE | 2020-07-13 15:41 | NUR ---
AT DOOR IN ROOM ASKING FOR A SANDWHICH RIGHT AFTER PARENTS LEFT. STATED WOULD GET ONE. WHEN BACK TO ROOM ASKS FOR ATIVAN AND HALDOL. INQUIRED TO WHY HE THINKS HE NEEDS THOSE. STATES "I HAVE A GENERAL ANXIETY DISORDER". LAYING ON BED, DOES NOT APPEAR TO HAVE ACUTE ANXIETY. WILL CONTINUE TO MONITOR. HALDOL AND ATIVAN NOT INDICATED AT THIS TIME. WILL CONTINUE TO MONITOR.
--- NOTE | 2020-07-13 16:05 | NUR ---
AT DOORWAY ASKING FOR XANAX STATES MULTIPLE TIMES TAKES 24 HOUR XANAX. CALM AND AND STATES IS HAVING GENERALIZED ANXIETY. NO ACUTE NEED FOR ADDITIONAL EDUCATION. REMINDED THAT PT THAT 14 DIVERSION STATES HE AGREED TO NOT ASK FOR ADDITIONAL MEDICATIONS. CALMLY GOES BACK INTO ROOM AND SHUTS SLIDING DOOR. DAISY REMAINS PARTIALLY OPEN AND ON CAMERA FOR SAFTEY.
--- NOTE | 2020-07-13 16:32 | NUR ---
CONTINUES TO DEMAND XANAX FOR ANXIETY. STATES WILL NOT TAKE ANY ANTIPYSCHOTIC MEDS WHEN HE LEAVES THE HOSPITAL THEREFORE NOTHING WE DO MATTERS. FOUNDER PRESIDENT AND CEO TO ROOM, CONTINUES TO ARGUE WITH FOUNDER PRESIDENT AND CEO.
--- NOTE | 2020-07-13 18:18 | NUR ---
SHIFT SUMMARY; A/A/OX4 THROUGHOUT DAY WITH FLIGHTS OF IDEAS AND PARANOIA. PACES AROUND ROOM AND COMES TO DOOR FREQUENTLY. POOR ACCEPTANCE OF BOUNDRIES, CONTINUES TO ASK FOR MULTIPLE MEDICATIONS THAT ARE NOT ORDERED DESPITE EDUCATING MULTIPLE TIMES THAT CONTRACT WAS SIGNED FOR 14 DIVERSION INCLUDING NOT ASKING FOR MEDS NOT ORDERED. CONTINUES TO STATE THAT SEROQUEL WILL NOT WORK BECAUSE IT IS A ANTIPSYCHOTIC AND HE IS NOT PSYCHOTIC. [facility] NOTIFIED TODAY OF PTS VERBALIZATION OF WANTING TO DISCONTINUE DIVERSION AND GO TO A HEARING. [facility] NOTIFIED OF CONTRACT VIOLATION REGARDING MEDICATION REQUESTS. STATES DOESN'T THE DOCTOR KNOW THE DIFFERENCE BETWEEN A ANTIPSHYCHOTIC AND A ANTIANXIETY MEDICATION.
--- NOTE | 2020-07-13 18:47 | NUR ---
REPORT TO ONCOMING RETURNS PROCESSOR RN TO ASSUME CARE.
--- NOTE | 2020-07-13 19:55 | NUR ---
ASSUMED CARE PT ALERT AND ORIENTED. VS STABLE. O2 SATS REMAIN ABOVE 90% ON RA. PT DENIES ANY PAIN. PT STATES HE IS ANXIOUS AND NEEDS BENADRYL AND ATIVAN. PT MEDICATED WITH SEROQUEL ORDERED, BUT BENADRY AND ATIVAN NOT INDICATED AT THIS TIME. PT PROVIDED SANDWICH REQUESTED. WILL CONTINUE TO MONITOR CLOSELY.
--- NOTE | 2020-07-14 05:15 | NUR ---
SHIFT SUMMARY PT REMAINS ALERT AND ORIENTED. PT ABLE TO SLEEP MOST OF SHIFT. PT DENIES ANY PAIN. VS STABLE. PT STATES HE DOES NOT KNOW WHY HE IS PRESCRIBED SEROQUEL, BUT IS WILLING TO TAKE IT. THIS RN PROVIDES EDUCATION. PT SNACKING FREQUENTLY THIS SHIFT. WILL CONTINUE TO MONITOR AND REPORT TO ONCOMING RN. CALL LIGHT IN REACH.
--- NOTE | 2020-07-14 05:42 | NUR ---
UPDATE PT COMES TO THE DOOR AND REQUESTS ATIVAN. PT INFORMED THAT ATIVAN IS NOT INDICATED. PT ASKED TO RETURN TO HIS ROOM. PT OFFERED SEROQUEL ORDERED. PT ASKING HOW AGITATED HE HAS TO ACT BEFORE HE CAN GET ATIVAN AND BENADRYL. PT PACING AT THE DOOR. PT ASKS FOR MUSCLE RELAXER. SECURITY CALLED AND STANDS BY WHILE THIS RN PROVIDES MUSCLE RELAXER PT REQUESTS. PT TAKES MEDICATION AND LAYS DOWN IN BED.
--- NOTE | 2020-07-14 09:03 | NUR ---
Assumed care Pt is currently pacing around his room, attempting to walk out to nurses desk multiple times. Pt is questioning his "Civil Rights". Pt was re-educated on his current rights & behavior contract. Pt is wanting to refuse/stop taking all psych meds. Call light in reach, resp unlabored. WCTM
--- NOTE | 2020-07-14 13:44 | NUR ---
FAMILY PT'S FATHER CALLED TO ASK ABOUT A POTENTIAL BREAK OUT WORKER BY THE NAME OF PAM VISITING THE PT & POSSIBLY CARING FOR HIM AFTER D/C. INFO WILL BE DISCUSSED WITH RAMP SUPERVISOR. HE WAS ALSO UPDATED ON PT'S CURRENT CONDITION/BEHAVIOR. FATHER STATES HIS SON HAS CALLED MULTIPLE TIMES & REFUSING TO "GET HELP" STATES "I WOULD RATHER GO BACK TO [facility] THAN GO TO ". FATHER CONCERNED HE IS SELF SABOTAGING TREATMENT.
--- NOTE | 2020-07-14 15:00 | NUR ---
Met pt. lying in bed but got up as I walked in he reports doing better, ncouraged pt. had a nice visit with pt. offered prayers and spiritual support for pt.
--- NOTE | 2020-07-14 16:51 | NUR ---
HYGIENE PT TO THE SHOWER, HE REFUSED TO USE SOAP/SHAMPOO, HE "RINSED" HIS BODY. LINENS CHANGED, ROOM CLEANED.
--- NOTE | 2020-07-14 20:10 | NUR ---
ASSUMED CARE OF PT, REPORT RECEIVED. PT HAS BEEN UP AND PACING IN ROOM, FREQUENTLY NOTED AT DOOR TO REQUEST ITEMS SUCH SANDWICH, PEPSI, CRANBERRY JUICE, ICE CREAM, ETC. HE DENIES CURRENT HALLUCINATIONS, HE IS ABLE TO STATE THAT HE IS IN [facility] IN [facility] AND THAT HE IS UNABLE TO STATE THE EXACT DATE BUT THAT HE BELIEVES THAT IT IS JULY 2020, HE STATES THAT HE WAS ADMITTED "BECAUSE I GOT HIGH ON ZYPREXA." PLAN OF CARE FOR THIS SHIFT IS OUTLINED FOLLOWS: 1999: SNACK CONSISTING OF PEPSI, SANDWICH, CRANBERRY JUICE, AND ICE CREAM, SHIFT ASSESSMENT, AND VITAL SIGNS CHECK 2200: SEROQUEL AND, IF NEEDED, FLEXERIL 0000: SNACK, PT REQUESTS THIS BE ROAST BEEF SANDWICH AND PEPSI 0200: IF NEEDED, SEROQUEL 0400: VITAL SIGNS CHECKED AND SNACK, PT REQUESTS ROAST BEEF SANDWICH AND PEPSI 0600: IF NEEDED, SEROQUEL AND FLEXERIL PT IS AGREEABLE TO THE PLAN OF CARE AT THIS TIME WELL PLANNING TO BUNDLE NEEDS FOR APPOINTED ROUND TIMES
--- NOTE | 2020-07-14 20:15 | NUR ---
SUMMARY PT HAS BEEN AGITATED, ANXIOUS AND NOT TOLERATING BOUNDARIES WELL. PT HAS PACED IN HIS ROOM ALL DAY, MADE MULTIPLE PHONE CALLS TO HIS PARENTS, DAD SATES HE THINKS HIS SON IS TRYING TO "SABOTAGE TREATMENT TO AVOID PLACEMENT AT . BOUNDARIES REINFORCED CONTINUOUSLY. PT HAD A SHOWER TODAY, TOLERATING PO INTAKE, VOIDING WNL. PT REFUSED AFTERNOON BP/VSS. RESP UNLABORED, CALL LIGHT IN REACH. REPORT GIVEN TO ASLLY PARADA.
--- NOTE | 2020-07-14 23:39 | NUR ---
PT COMES TO DOOR OF ROOM AND REQUESTS ZYPREXA, THIS RN DISCUSSED THAT PT NO LONGER HAS ZYPREXA ORDERED, PT STATES "ARE YOU SURE, BECAUSE IT'S ON MY BOARD" AND "CAN YOU LOOK BECAUSE I HAD SOME EARLIER" EXPLAINED TO PT THAT SEROQUEL IS ORDERED NEEDED AND NEXT AVAILABLE DOSE IS 0200 AND IS WRITTEN ON THE PROVIDED PLAN OF CARE FOR THIS SHIFT. PT RETURNS TO BED.
--- NOTE | 2020-07-15 00:08 | NUR ---
PT UP PACING IN ROOM EATING SNACK PER PLAN OF CARE THIS SHIFT.
--- NOTE | 2020-07-15 02:01 | NUR ---
PT APPEARS TO BE SLEEPING, RESP EVEN AND REGULAR, DID NOT AWAKEN PT AT THIS TIME.
--- NOTE | 2020-07-15 04:00 | NUR ---
PT APPEARS TO BE SLEEPING, RESP EVEN AND REGULAR, NO GRIMACING OR RESTLESSNESS NOTED. SNACK PLACED ON BEDSIDE TABLE PER PREVIOUS ARRANGEMENT. WILL CONT TO MONITOR.
--- NOTE | 2020-07-15 05:20 | NUR ---
PT RESTING QUIETLY AT THIS TIME, AFTER PLAN OF CARE DISCUSSED WITH PATIENT AT 1999, HE HAS BEEN TO THE DOOR OF HIS ROOM ONE TIME TO REQUEST ZYPREXA, OTHERWISE HE HAS REMAINED IN ROOM, PACING WAS NOTED AT ONE TIME, SEE PREVIOUS NOTES. HE HAS USED CALL LIGHT ONCE THIS SHIFT. PRN FLEXERIL WAS ADMINISTERED WITH 2200 SEROQUEL OTHERWISE NO PRN MEDICATIONS HAVE BEEN ADMINISTERED THIS SHIFT. WILL CONTINUE TO MONITOR AND REPORT OFF TO ONCOMING SHIFT.
--- NOTE | 2020-07-15 07:50 | NUR ---
ASSUMED CARE REPORT RECEIVED FROM TAL VELASQUEZ. PT UP PACING IN ROOM, REQUESTED SEROQUEL AND FLEXERIL, GIVEN. PT REQUESTED HIS IV FLUSHED, DONE. PT STATES HE IS HAVING AUDITORY HALLUCINATIONS. REQUESTED COUNSELING FOR THE "VOICES" IN HIS HEAD AND ASKED WHEN THE DOCTORS WILL BE BY. EXPLAINED THAT THEY WILL BE BY THIS MORNING, BUT EXACT TIMES UNKNOWN. VITALS TAKEN AND PT'S HR TACHY ANDBP ELEVATED. PT DOES APPEAR MORE ANXIOUS THAN NORMAL AT THIS TIME. HE IS CONTINUALLY PACING. PT REQUESTED COLORING PAGES, PROVIDED. REVIEWED NURSE ROUNDING AND EXPECTATION FOR PT FOR THIS SHIFT. PT TALKING ON PHONE WITH HIS PARENTS CURRENTLY
--- NOTE | 2020-07-15 14:01 | NUR ---
Met pt. in bed resting he reports to be doing much better encouraged pt. and offered prayers for him , pt. gave thanks for the visit.
--- NOTE | 2020-07-15 17:41 | NUR ---
SHIFT SUMMARY PT CONTINUES TO DENY SUICIDAL IDEATION. HE MENTIONED SEVERAL TIMES TODAY THAT HE WAS HEARING VOICES AND REQUESTED SEROQUEL FOR IT. HIS BP HAS BEEN HIGH, BUT PT REFUSED TO TAKE ANY MEDICATION FOR IT SAYING "IT WILL HURT MY KIDNEYS." EXPLAINED TO PT THAT HAVING HIGH BLOOD PRESSURE FOR EXTENDED LENGTH OF TIME WILL HURT HIS KIDNEYS. PT STATES HIS PARENTS TOLD HIM NOT TO TAKE BP MEDS SO HE ASKED IF HE COULD WAIT TILL THEY WERE HERE, WHICH WAS ALLOWED. READDRESSED IT WITH PT'S PARENTS PRESENT AND EVEN WITH THEIR APPROVAL PT DOESN'T WANT TO TAKE THE NORVASC. PT WENT BACK AND FORTH SEVERAL TIMES BETWEEN SAYING HE WOULD TAKE IT AND REFUSING BECAUSE HE WAS CONCERNED ABOUT THE DIVERSION CONTRACT. HE ASKED IF IT ONLY APPLIED TO PSYCHIATRIC MEDS AND THIS NURSE STATED THAT THE CONTRACT STATES REFUSING ANY MEDICATIONS. ULTIMATELY PT DECIDED NOT TO TAKE IT, ONCE AGAIN CITING CONCERN ABOUT HIS KIDNEYS. PT DID SHOWER TODAY, SAYS HE USED SOAP. REFUSED TO WASH HIS HAIR AGAIN BECAUSE HE GAVE IT UP FOR LENT. LUNGS REMAIN CLEAR. HR TACHY. VOIDING WITHOUT DIFIFCULTY. EATING 100% AT EVERY MEAL. AWAITING INPT PLACEMENT. CONTINUE TO MONITOR.
--- NOTE | 2020-07-15 20:03 | NUR ---
PT RESTING QUIETLY MOSTLY SUPINE IN BED AND APPEARS TO BE SLEEPING, VITAL SIGNS STABLE AT THIS TIME, PT DOES ROUSE TO VERBAL STIMULI, DISCUSSED PLAN OF CARE FOR THIS SHIFT AND HE IS AGREEABLE TO USING THE SAME PLAN OF CARE LAST NOC INCLUDING SNACK TIMES AND MEDICATION TIMES. DISCUSSED WITH PT THAT IF HE IS SLEEPING AT 0200 ROUNDS THIS RN WON'T AWAKEN HIM FOR MEDICATIONS BUT WILL AWAKEN HIM AND ASSESS FOR PRN MEDICATIONS AT 0600 PT WAS AGITATED AND PACING IN ROOM DURING SHIFT CHANGE THIS AM. HE IS AGREEABLE TO THIS PLAN AT THIS TIME. HE DENIES HEARING ANY VOICES AT THIS TIME WELL DENIES ANY OTHER VISUAL/AUDITORY HALLUCINATIONS, HE REMAINS ABLE TO STATE THAT HE IS IN [facility] AND DENIES SUICIDAL IDEATION.
--- NOTE | 2020-07-16 04:47 | NUR ---
PT USES CALL LIGHT, STATES THAT HE NEEDS SEROQUEL "BECAUSE I'M HEARING BAD THINGS" WHEN PT IS ASKED TO CLARIFY, HE STATES THAT HE IS HEARING VOICES. THIS RN INQUIRED REGARDING WHAT THE VOICES WERE SAYING AND PT STATES THAT IT IS "JUST VOICES" AND "I DON'T LIKE THEM" THIS RN AGAIN CLARIFIED TO WHETHER THERE WERE WORDS OR JUST VOICES AND PT STATES AGAIN "JUST VOICES" SEROQUEL ADMINISTERED, WILL MONITOR.
--- NOTE | 2020-07-16 06:44 | NUR ---
PT RESTS QUIETLY THROUGHOUT SHIFT, USED CALL LIGHT TO MAKE NEEDS KNOWN, REQUESTED PRN SEROQUEL AT 0430 THIS AM, SEE NN AT THAT TIME. HE HAS BEEN COMPLIANT WITH PLAN OF CARE FOR THIS SHIFT OUTLINED WITH HS ASSESSMENT.
--- NOTE | 2020-07-16 08:26 | NUR ---
Liliavd report from Yenifer PARADA. He awoke and came to door starring out through glass. Took breakfast in and cleaned his area of a dozen other un-drinken glasses. After setting up breakfast and left room he immediately calls for Seroquel and I talked with him about not calling frqeuntly for meds as they are schedule and he will get them when it is timed. He is pacing room coming to glass door starring out. VS done reveiwed his meds that he is getting at 0900/
--- NOTE | 2020-07-16 09:48 | NUR ---
Patient bret am meds reluctantly and had to argue with him about taking Norvasc and he only wanted med for anxiety. I re explained contract he argreed to. He was questioning me why he was in hospital as he only took meds to get high not to over dose. After pacing room for several minutes he climbed back in bed and wanted to rest. Independent in room.
--- NOTE | 2020-07-16 11:30 | NUR ---
He has been resting off and on and mostly cooperative with care and argues occassionally. he paces around room and lays down and rest. just set up for lunch. He has tolerated Pepsi well.
--- NOTE | 2020-07-16 13:30 | NUR ---
Patient resting in bed with occassional walks. Hd to have conversation with him about following plan and not coming to door. VS are better see EMR. [facility] coming by. Dr Delatorre by and spoke briefly with patient and security and bedside.
--- NOTE | 2020-07-16 15:30 | NUR ---
[facility] by and spoke with patient and explained hearing. Patient slightly agitated. His safety instructor is by now and trying to explain to him and came in room and spoke with him about being quiet and calming speech while speaking. He is not very happy and also commented that he will do what it takes to get out of here including hurting someone. I spoke with him and explained that that kind of speech is not acceptable he is laying in bed .
--- NOTE | 2020-07-16 18:12 | NUR ---
Patient was up and ambulated to shower and made sure he used soap and for more than 5 minutes. Changed linen. Parent were by for about 30 minutes and patient was appropriate. VSS, See EMR. He is currently resting in bed. He tolerated double order of dinner well.
--- NOTE | 2020-07-16 19:00 | NUR ---
ASSUMED CARE NOTE: ASSUMED CARE OF PT AT 1900, RECEVIED REPORT FROM RAHUL PARADA. PT IS ALERT AND ORIENTEDX3. PT IS COOPERATIVE WITH CARE AT THIS TIME. PT DENIES ANY SI, HALLUCINATIONS AT THIS TIME. BP STABLE , HR 100. PT INSTRUCTED TO USE CALL WHEN NEEDED. PT REQUESTING FOR FOOD. WILL CONTINUE TO MONITOR PT UNTIL REPORT IS GIVEN AT THIS TIME.
--- NOTE | 2020-07-17 06:12 | NUR ---
SHIFT SUMMARY: PT HAS BEEN RESPECTFUL ALL SHIFT, HAS BEEN USING HIS CALL LIGHT APPROPRIATLY. HE HAS BEEN SLEEPING FOR THE MAJORITY OF THE SHIFT. CONTINUES TO DENY SI. PT HAS BEEN ON RA , NO RESP DISTRESS NOTED. BP STABLE T/O SHIFT. PT HAS BEEN COMPLIANT WITH MEDS AND DIRECTIONS BEING GIVEN TO HIM. PT HAS NOT REFUSED CARE THIS SHIFT. PG IV DRESSING CHANGED THIS SHIFT. WILL CONTINUE TO MONITOR PT UNTIL REPORT IS GIVEN TO ONCOMING SHIFT.
--- NOTE | 2020-07-17 10:07 | NUR ---
Assumed care of pt at 0700. Report received from Brandy PARADA. Pt so far this shift has been pleasant and cooperative with care. Requested ordered medications. Main requests today in are for sandwiches and a shower. Pt is medical floor status without telemetry. Pt on room air. Currently in bed, sleeping at this time.
--- NOTE | 2020-07-17 15:53 | NUR ---
No acute changes since previous note. Pt remains pleasant and cooperative with care. Appropriate with requests.
--- NOTE | 2020-07-17 19:00 | NUR ---
ASSUMED CARE NOTE: ASSUMED CARE OF PT AT 1900, RECEVIED REPORT FROM MARGUERITE PARADA. PT IS ALERT AND ORIENTED TO SELF, PLACE, TIME. PT IS AGITATED AT THIS TIME, NEEDED TO BE REMINDED OF APPROPRIATE BEHAVIOR WITH STAFF. PT AGREED TO BE COOPERATIVE. PT IS ON RA WITH SPO2 ABOVE 90% , NO RESP DISTRESS. BP STABLE. PT DENIES ANY SI AT THIS TIME. WILL CONTINUE TO MONITOR PT T/O SHIFT.
--- NOTE | 2020-07-17 19:56 | NUR ---
SUMMARY Pt has been pleasant and cooperative with care for majority of shift. There was an episode around 1700 where patient started to get defensive and stated "They aren't going to be able to do anything to help me". This RN reminded pt of the plan for court tomorrow and he can bring his concerns to court. Pt accepted this response and went back to his bed. No additional changes since initial assessment.
--- NOTE | 2020-07-18 06:18 | NUR ---
SHIFT SUMMARY: NO SIGNIFICANT CHANGES T/O SHIFT. PT HAS BEEN SLEEPING FOR THE MAJORITY OF THE SHIFT. HAS BEEN APPROPRIATE T/O THE NIGHT, USED CALL LIGHT APPROPRIATLY. PT HAS BEEN CALM AND COOPERATIVE WHEN CARE IS GIVEN. PT HAS BEEN ON RA WITH SPO2 ABOVE 90% BP STABLE. PT WILL BE DISCHARGED BY DAYSHIFT. WILL CONTINUE TO MONITOR PT UNTIL REPORT IS GIVEN TO ONCOMING NURSE.
[2020-07-18] MEDS ORDERED: QUET200 PO (07:55)
--- NOTE | 2020-07-18 08:18 | NUR ---
Assumed care of pt at 0700 from Brandy PARADA. Pt A&O x 4. Answers questions. Follows commands. Verbalizes needs. Requests shower before he goes to court. Shower provided. Pt requests own clothes. Clothes inspected and provided to patient. Clothing odiferous. Pt offered hospital clothing, pt accepted pants but wanted to keep his own top and robe. Discharge orders received from Dr Castellanos. Medication orders [place] [facility] [place]. Pt received AM dose of seroquel and flexeril per his request. Pt also ate breakfast. Pt departed via secure transport at 0815. Pt belongings given to secure transport.
== END 2020-07-18 08:15 | DRG 917 ==
LOC: ER 10:17 → ICUW 10:18
PROVIDERS: Nurse Practitioner Acute Care; Physician Assistant; ADMIT Internal Medicine
DX: T43.501A Poisoning by unspecified antipsychotics and neuroleptics, accidental (unintentional), initial encounter (principal); G92 Toxic encephalopathy; M62.82 Rhabdomyolysis; F84.0 Autistic disorder; F90.9 Attention-deficit hyperactivity disorder, unspecified type; F20.9 Schizophrenia, unspecified; I10 Essential (primary) hypertension; E66.9 Obesity, unspecified; Z88.0 Allergy status to penicillin; Z78.1 Physical restraint status
CPT/HCPCS: 36415; 71045; 80048; 80053; 81003; 82550; 82553; 83735; 84436; 85025; 86592; 93005; 93010; 96361; 96374; 96375; 99285-25; A9270; G0480; J1200; J1630; J1650; J2060; J7030

== ENCOUNTER 2020-09-29 12:40 | Emergency (ER) | payer OTHER ==
[~2020-09-29] VITALS: Ht 182.9 cm; Wt 132.0 kg
[~2020-09-29 12:40] MED LIST changes: +OLAN10; +QUET200 PO
== END 2020-09-29 16:00 | disposition home or self-care (01) ==
LOC: ER 12:40
DX: S80.212A Abrasion, left knee, initial encounter (principal); I10 Essential (primary) hypertension; Z88.0 Allergy status to penicillin; Z79.899 Other long term (current) drug therapy; Z88.8 Allergy status to other drugs, medicaments and biological substances; Z23 Encounter for immunization; W22.8XXA Striking against or struck by other objects, initial encounter
CPT/HCPCS: 73562-LT; 90471; 90714; 99284-25; A9270

== ENCOUNTER 2020-09-30 11:17 | Emergency (ER) | payer OTHER ==
[~2020-09-30] VITALS: Ht 182.9 cm; Wt 136.1 kg
== END 2020-09-30 14:30 | disposition home or self-care (01) ==
LOC: ER 11:17
DX: F20.81 Schizophreniform disorder (principal); I10 Essential (primary) hypertension; F13.11 Sedative, hypnotic or anxiolytic abuse, in remission; F12.11 Cannabis abuse, in remission; F90.9 Attention-deficit hyperactivity disorder, unspecified type; F84.0 Autistic disorder
CPT/HCPCS: 99283

== ENCOUNTER 2020-11-23 23:36 | Emergency (ER) | payer OTHER ==
[~2020-11-23] VITALS: Ht 182.9 cm; Wt 158.8 kg
== END 2020-11-23 23:49 | disposition home or self-care (01) ==
LOC: ER 23:36
DX: S39.94XA Unspecified injury of external genitals, initial encounter (principal); I10 Essential (primary) hypertension; W51.XXXA Accidental striking against or bumped into by another person, initial encounter
CPT/HCPCS: 99283

== ENCOUNTER 2021-01-28 23:15 | Emergency (ER) | payer OTHER ==
[~2021-01-28] VITALS: Ht 188 cm; Wt 158.8 kg
== END 2021-01-29 00:12 | disposition home or self-care (01) ==
LOC: ER 23:15
DX: F41.9 Anxiety disorder, unspecified (principal); I10 Essential (primary) hypertension; Z88.0 Allergy status to penicillin; Z79.899 Other long term (current) drug therapy
CPT/HCPCS: 99284

== ENCOUNTER 2021-02-05 17:26 | Observation (INO) | payer OTHER ==
[~2021-02-05] VITALS: Ht 180.3 cm; Wt 122.5 kg
[2021-02-06 06:07] LABS: Source, Urine Clean Catch
[2021-02-06 06:17] LABS: Appearance, Urine Clear (Clear); Bilirubin, Urine Neg (Neg); Blood, Urine Neg (Neg); Color, Urine Yellow (P-Yellow); Glucose Qualitative, Urine Neg (Neg); Ketones, Urine Neg (Neg); Leukocyte Esterase, Urine Neg (Neg); Nitrite, Urine Neg (Neg); Protein, Urine Neg (Neg); Urobilinogen, Urine NORM (Normal)
[2021-02-06 06:37] LABS: U Amphetamine Screen Not Detected; U Barbituate Screen Not Detected; U Benzodiazapine Screen DETECTED; U Buprenorphine Screen Not Detected; U Cannabinoids Screen Not Detected; U Cocaine Screen Not Detected; U Methadone Screen Not Detected; U Methamphetamine Screen Not Detected; U Opiates Screen Not Detected; U Oxycodone Screen Not Detected; U Phencyclidine Screen Not Detected; U Propoxyphene Screen Not Detected
[2021-02-06 10:10] LABS: BASOPHILS ABSOLUTE AUTO 0.04 K/mm3 (0.00-0.23); BASOPHILS PERCENT AUTO 1 % (0-2); EOSINOPHILS ABSOLUTE AUTO 0.18 K/mm3 (0.00-0.68); EOSINOPHILS PERCENT AUTO 2 % (0-6); Hematocrit 44.2 % (37.0-53.0); Hemoglobin 14.6 g/dL (13.5-17.5); IMMATURE GRAN ABSOLUTE AUTO 0.03 K/mm3 (0.00-0.10); IMMATURE GRAN PERCENT AUTO 0 % (0-1); LYMPHOCYTES PERCENT AUTO 17 % (21-46); MONOCYTES ABSOLUTE AUTO 0.82 K/mm3 (0.16-1.47); MONOCYTES PERCENT AUTO 9 % (4-13); Mean Corpuscular HGB 28.8 pg (26.0-34.0); Mean Corpuscular Volume 87 fL (80-100); Mean Platelet Volume 9.1 fL (9.1-12.4); NEUTROPHILS ABSOLUTE AUTO 6.16 K/mm3 (1.96-9.15); NEUTROPHILS PERCENT AUTO 71 % (41-73); Platelet Count 294 K/mm3 (150-400); RDW Coefficient Variation 12.4 % (11.7-14.2); RDW Standard Deviation 39.3 fL (35.1-46.3); Red Blood Cell Count 5.07 M/mm3 (4.30-5.90); White Blood Cell Count 8.73 K/mm3 (4.00-11.30)
[2021-02-06 10:23] LABS: Ethanol (Alcohol), Blood, Med <3 mg/dL; Salicylate <1.7 mg/dL (2.8-20.0)
[2021-02-06 10:29] LABS: Acetaminophen, Random <2.0 ug/mL (10.0-30.0); Alanine Aminotransfer (ALT/SGP 32 U/L (12-78); Albumin, Blood 2.8 g/dL (3.4-5.0); Albumin/Globulin Ratio 0.7 (0.8-1.8); Alk Phos 100 U/L (50-136); Anion Gap 5 mmol/L (6-16); Aspartate Aminotrans (AST/SGOT 24 U/L (12-37); Bilirubin, Total 0.4 mg/dL (0.1-1.0); Blood Urea Nitrogen 14 mg/dL (8-24); Bun/Creatinine Ratio 15.8 (12.0-20.0); CO2, Blood 23 mmol/L (21-32); Calcium, Blood 8.8 mg/dL (8.5-10.1); Chloride, Blood 110 mmol/L (98-108); Creatinine, Blood 0.89 mg/dL (0.60-1.20); Globulin, Blood 3.9 g/dL (2.2-4.0); Glomerular Filtration Rate >60 (60-); Glucose, Blood 83 mg/dL (70-99); Potassium, Blood 4.5 mmol/L (3.5-5.5); Sodium, Blood 138 mmol/L (136-145); Total Protein, Blood 6.7 g/dL (6.4-8.2)
[2021-02-06 11:02] LABS: SARS-Cov-2 (COVID-19) PCR, MMC NEGATIVE (NEGATIVE)
[2021-02-08] MEDS ORDERED: Percocet 5-3251 EACH PO (09:57)
== END 2021-02-13 12:50 | disposition home or self-care (01) ==
LOC: ER 17:26 → EOR 17:27
PROVIDERS: ADMIT Student in an Organized Health Care Education/Training Program
DX: F20.9 Schizophrenia, unspecified (principal); F84.0 Autistic disorder; F90.1 Attention-deficit hyperactivity disorder, predominantly hyperactive type; F12.10 Cannabis abuse, uncomplicated; G89.29 Other chronic pain; M25.569 Pain in unspecified knee; I10 Essential (primary) hypertension; E66.9 Obesity, unspecified; Z68.37 Body mass index [BMI] 37.0-37.9, adult; Z20.822 Contact with and (suspected) exposure to COVID-19; Z91.51 Personal history of suicidal behavior; Z81.8 Family history of other mental and behavioral disorders; Z88.0 Allergy status to penicillin
CPT/HCPCS: 36415; 80053; 81003; 85025; 96372; 99285; A9270; G0378; G0480; J1630; J2060; U0004

== ENCOUNTER 2025-02-28 06:18 | Observation (INO) | payer OTHER ==
[~2025-02-28] VITALS: Ht 188 cm; Wt 145.2 kg
[~2025-02-28 06:18] MED LIST changes: +AMLO5 PO; +AMPDEX5 PO; +BENZ2 PO; +CATAPRES0.1 MG PO; +INVEGA SUS234 MG/1.1 IM; +PALI3TAB PO
[2025-02-28] MEDS ORDERED: DiphenhydrAMINE HCl 50 MG/ML 1ML Vial IM ONE (06:30)
[2025-02-28] MEDS ORDERED: LORazepam 2 MG/ML 1ML Injection IM ONE (06:30)
[2025-02-28] MEDS ORDERED: Haloperidol Lactate Inj. 5 MG/ML Injection IM ONE (06:30)
[2025-02-28 06:57] LABS: BASOPHILS ABSOLUTE AUTO 0.05 K/mm3 (0.00-0.23); BASOPHILS PERCENT AUTO 0 % (0-2); EOSINOPHILS ABSOLUTE AUTO 0.12 K/mm3 (0.00-0.68); EOSINOPHILS PERCENT AUTO 1 % (0-6); Hematocrit 44.4 % (37.0-53.0); Hemoglobin 14.7 g/dL (13.5-17.5); IMMATURE GRAN ABSOLUTE AUTO 0.04 K/mm3 (0.00-0.10); IMMATURE GRAN PERCENT AUTO 0 % (0-1); LYMPHOCYTES ABSOLUTE AUTO 1.59 K/mm3 (0.84-5.20); LYMPHOCYTES PERCENT AUTO 13 % (21-46); MONOCYTES ABSOLUTE AUTO 0.72 K/mm3 (0.16-1.47); MONOCYTES PERCENT AUTO 6 % (4-13); Mean Corpuscular HGB Conc 33.1 g/dL (31.5-36.5); Mean Corpuscular Volume 85 fL (80-100); NEUTROPHILS ABSOLUTE AUTO 9.32 K/mm3 (1.96-9.15); NEUTROPHILS PERCENT AUTO 79 % (41-73); NRBC ABSOLUTE 0.00 K/mm3 (0.00-0.02); NRBC Auto 0.0 /100 WBC (0.0-0.2); Platelet Count 407 K/mm3 (150-400); RDW Coefficient Variation 13.0 % (11.7-14.2); RDW Standard Deviation 40.2 fL (35.1-46.3)
[2025-02-28 07:12] LABS: pH Blood Venous 7.42 (7.34-7.37)
[2025-02-28 07:13] LABS: Alanine Aminotransfer (ALT/SGP 32 U/L (12-78); Albumin, Blood 3.4 g/dL (3.4-5.0); Albumin/Globulin Ratio 0.9 (0.8-1.8); Anion Gap 9 mmol/L (3-11); Aspartate Aminotrans (AST/SGOT 18 U/L (12-37); Bilirubin, Total 0.4 mg/dL (0.1-1.0); Blood Urea Nitrogen 11 mg/dL (8-24); CO2, Blood 26 mmol/L (21-32); Calcium, Blood 9.1 mg/dL (8.5-10.1); Chloride, Blood 107 mmol/L (98-108); Creatinine, Blood 0.83 mg/dL (0.60-1.20); Ethanol (Alcohol), Blood, Med <3 mg/dL; Globulin, Blood 3.8 g/dL (2.2-4.0); Glucose, Blood 108 mg/dL (70-99); Magnesium, Blood 2.0 mg/dL (1.6-2.4); Potassium, Blood 3.9 mmol/L (3.5-5.5); Sodium, Blood 138 mmol/L (136-145); Total Protein, Blood 7.2 g/dL (6.4-8.2)
[2025-02-28] MEDS ORDERED: NS 1,000 ML IV SCH (07:30)
[2025-02-28 08:51] LABS: U Amphetamine Screen Not Detected; U Barbiturate Screen Not Detected; U Benzodiazapine Screen Not Detected; U Buprenorphine Screen Not Detected; U Cannabinoids Screen DETECTED; U Cocaine Screen Not Detected; U Methadone Screen Not Detected; U Methamphetamine Screen Not Detected; U Opiates Screen Not Detected; U Oxycodone Screen Not Detected; U Phencyclidine Screen Not Detected
[2025-02-28] MEDS ORDERED: LORazepam 2 MG/ML 1ML Injection IV ONE (09:05)
[2025-02-28 09:26] LABS: Salicylate <1.7 mg/dL (2.8-20.0)
[2025-02-28 09:31] LABS: Acetaminophen, Random <2.0 ug/mL (10.0-30.0)
[2025-03-01 17:46] VITALS: BP 138/102
== END 2025-03-02 01:18 ==
LOC: ER 06:18 → EOR 06:19
PROVIDERS: ADMIT Emergency Medicine
DX: T65.892A Toxic effect of other specified substances, intentional self-harm, initial encounter (principal); F20.81 Schizophreniform disorder; F90.1 Attention-deficit hyperactivity disorder, predominantly hyperactive type; F84.0 Autistic disorder; I10 Essential (primary) hypertension; E87.20 Acidosis, unspecified; F12.10 Cannabis abuse, uncomplicated; Z88.0 Allergy status to penicillin
CPT/HCPCS: 51701; 80053; 80320; 82803; 82947; 83605; 83735; 83930; 85025; 93005; 93010; 96361; 96372; 96374; 99285-25; A9270; G0378; G0480; J1200; J1630; J2060; J7030